=== PATIENT | female | born 1985 | race Caucasian/White ===

== ENCOUNTER → 2018-05-06 16:54 | Outpatient (CLI) | payer OTHER, SELFPAY ==
[2018-05-06 15:54] VITALS: BMI 28.3
[2018-05-06 17:34] LABS: Absolute Lymphocyte Count 2.91 X10^3/ul (0.83-4.51); Absolute Neutrophil Count 7.4 X10^3/uL (2.0-7.7); Basophil# 0.04 X10^3/uL; Basophil% 0.4 % (0-1); Eosinophil# 0.06 X10^3/uL; Eosinophils% 0.5 % (0-5); Hematocrit 37.7 % (37-47); Hemoglobin 13.1 g/dl (12.0-15.0); Lymphocyte # 2.91 X10^3/ul (4.0); Lymphocyte % 25.8 % (19-41); Mean Corp Hgb Conc 34.7 g/gl (32-36); Mean Corpuscular Hgb 29.7 pg (27.0-32.0); Mean Corpuscular Volume 85.5 fL (81-99); Mean Platelet Vol. 11.2 fl (6.2-12.0); Monocyte# 0.82 X10^3/uL; Monocyte% 7.3 % (0-10); Neutrophil # 7.44 X10^3/uL (2.7-7.7); Neutrophil % 65.7 % (47-70); Platelet Count 222 K/mm3 (150-450); RBC Distribution Width CV 12.3 % (11.6-14.6); RBC Distribution Width SD 38.3 fl (35.1-43.9); Red Blood Count 4.41 M/mm3 (4.2-5.4); White Blood Count 11.3 K/mm3 (4.4-11.0)
[2018-05-06 17:40] LABS: POSITIVE COUNT NO; POSITIVE DIFFERENTIAL NO; POSITIVE MORPHOLOGY NO
[2018-05-06 18:25] LABS: Glucose 80 mg/dL (74-106)
[2018-05-06 19:17] LABS: HIV - WCH Non-Reactive (Nonreactive); Rubella IgG 93.5 IU/mL
[2018-05-06 23:17] LABS: Chlamydia Trachomatis by PCR Negative (Negative); Neisserai gonorrhoeae by PCR Negative (Negative); Probe Check PASS; Sample Adequacy Control PASS; Specimen Processing Control PASS
[2018-05-08 15:17] LABS: CMV Antibody IgG < 0.60 U/mL (0.00-0.59); HEPATITIS B SURFACE AG Negative (Negative)
[2018-05-08 23:53] LABS: Rapid Plasmin Reagin (RPR) NONREACTIVE (NONREACTIVE)
[2018-05-12 12:35] LABS: HPV APTIMA, High Risk Positive (Negative)
--- OUTSIDE RECORDS SUMMARY | 2018-08-08 05:32 | XMS RPT_ITS ---
:1985 Author Organization OHIP Care Team Providers Name Role Phone Vaishali March Attending Unavailable Vaishali March Attending Unavailable Vaishali March Referring Unavailable Kemal Jeter Primary [facility] Unavailable Vaishali March Attending Unavailable Vaishali March Attending Unavailable PROBLEMS PROBLEMS DATE TYPE CONDITION / CODE ATTENDING STATUS SOURCE 05/16/2018 Unknown N91.2 - Anca, Active Sajan Amenorrhea, Vaishali [facility] unspecified / Hospital N91.2(ICD-10) Repository 05/06/2018 Unknown Z34.90 - Anca, Active Sajan Encounter for [facility] normal , Repository unspecified, unspecified trimester / Z34.90(ICD-10) 05/06/2018 Unknown Z3A.08 - 8 weeks Anca, Active Sajan gestation of [facility] / Hospital Z3A.08(ICD-10) Repository 07/08/2017 Unknown N92.6 - Irregular Anca, Active Sajan menstruation, [facility] unspecified / Hospital N92.6(ICD-10) Repository PROCEDURES PROCEDURES No Procedure Records FoundRESULTS RESULTS CHILD PSYCHOMETRIST OFFICE VISIT Observed: 05/10/2018 Status: F Source: [place] REPORT 3:29 AM [facility] REPOSITORY [facility] Emergency Department [address] [place] [address]. [address] [place] [address] OFFICE VISIT Date of Service: 05/06/18 MR#: [id number] Acct: [id number] Name: PIEDAD TURNER Rep #: [id number] : 1985 Provider: Vaishali March MD Age/Sex: 32/F [place] [facility] [place] Status: Signed Intake Vital Signs05/06/18 Height 5 ft 4 in 05/06/18 Weight: 165 lb 2 oz 05/06/18 Body Mass Index (BMI) 28.3 05/06/18 Blood Pressure 110/82 H Intake Visit Reasons: NOB: LMP 03/06/18 Chief Complaint: NEW OB Intelligence Operations Required: No Is patient in pain?: No Allergies No Known Allergies Allergy (Verified 05/06/18 15:55) Medications vitamin#30 30 mg iron-10 mg iron-folic acid 1 mg- omg3 capsule cap PO cap 05/06/18 [History Confirmed 05/06/18] Last Menstral Period: 06/05/17 Zika: Zika virus screening: Negative : No PFSH PFSH Medical History Abnormal Pap smear of cervix (Acute) Surgical History H/O hand surgery (Acute) History of colposcopy (Acute) Hx of cholecystectomy (Acute) Family History Grandmother Heart disease Cancer pancreatic cancer Social History Smoking Status: Never smoker alcohol intake: never substance use type: does not use caffeine: Yes frequency: 3-4 times per week seatbelt use: always do you feel safe at home: Yes additional social history: Wally Fairchild works at 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 OB Visit Comments: crl consistent with cam 12/05/18 fht present and reassuring Menstrual History Last Menstral Period: 06/05/17 Reported LMP: definite Normal amount/duration: Yes On hormonal BC at conception: No Antepartum Record Genetic Screening: Congenital Heart Defect: Other, Neural Tube Defect: Other, Hemoglobinopathy Or Carrier: Other, Cystic Fibrosis: Other, Chromosome Abnormality: Other, Giles-Sachs: Other, Hemophilia: Other, Intellectual Disability/Autism: Other, Recurrent Loss/Stillbirth: Other, Other Structural Defect: Other, Other Genetic Disease: Other, Maternal Metabolic Disorder: Other Infection History: Live with someone with TB or Exposed to TB: No, Patient or Partner has history of Genital Herpes: No, Rash or Viral illness since last mentrual period: No, Prior GBS-Infected child: No, History of STD: No, HIV Infection: No, History of Hepatitis: No, Recent travel outside of [place]: No, Concern for Hep exposure: No, Varicella immune: Yes Medical History Medical History: Positive: Operations/hospitalizations, History of abnormal pap, Negative: Diabetes, Hypertension, Heart disease, Auto-immune disorder, Kidney disease/UTI, Neurologic/epilepsy, Psychiatric, Depression/ depression, Hepatitis/liver disease, Varicosities/phlebitis, Thyroid dysfunction, Trauma/domestic violence, History of blood transfusions, D (Rh) Sensitized, Pulmonary (e.g.,TB,Asthma), Seasonal allergies, Drug/latex allergies/reactions, Breast, Engine Service Repairer surgery, Anesthetic complications, Uterine anomaly/ganesh, Infertility, Anti-retroviral treatment, Relevant family history, Other ACOG First Trimester First Trimester: , Desire for , Alcohol, Tobacco Cessation, Illicit/Recreational Drug/Substance Use, Intimate Partner Violence, Barriers to care, Unstable Housing, Communication Barriers, Environmental/Work Hazards, Anticipated Course of Care, Nurtrition and weight gain, Toxoplasmosis Precations, Use of Any medications, Sexual activity, Exercise, Dental Care, Sauna/Hot tub use, Seat Belt use, Childbirth classes/Hospital facilities, Travel, Indications for US and Screening for Aneuploidy ROS Const Denies fever(s), Reports system reviewed and no additional complaints, except as docu, Reports fatigue Eyes Reports system reviewed and no additional complaints, except as docu ENT Reports system reviewed and no additional complaints, except as docu Card Denies chest pain, Denies shortness of breath Resp Reports system reviewed and no additional complaints, except as docu, Denies shortness of breath, Denies cough GI Reports nausea, Denies abdominal pain Reports system reviewed and no additional complaints, except as docu Musc Reports system reviewed and no additional complaints, except as docu Skin/Breast Reports system reviewed and no additional complaints, except as docu Neuro Yes system reviewed and no additional complaints, except as docu Psych Reports system reviewed and no additional complaints, except as docu Endo Reports fatigue, Reports system reviewed and no additional complaints, except as docu Exam Const General: healthy appearing, comfortable, no acute distress Orientation: alert HENVT Head: normal to inspection, atraumatic, normocephalic Ears: external ears normal, hearing grossly normal bilaterally Nose: nares normal, external nose normal Mouth: oral mucosae normal Teeth and gingiva: dentition normal Eyes General: appearance normal, both eyes and all related structures Neck Neck: no lymphadenopathy, supple, normal visual inspection Thyroid: thyroid normal Resp Effort AND Inspection: normal respiratory effort GI Inspection: normal to inspection Palpation: soft, no hepatosplenomegaly General: bladder normal to palpation External Female Exam: normal external appearance, normal appearance of the urethra Urethra: normal appearance of the urethra Speculum Exam - Vagina: normal appearance of the vagina, normal vaginal discharge Speculum Exam - Cervix: normal appearance of the cervix Bimanual Exam- Vagina AND Uterus: bladder normal to palpation, normal bimanual exam, uterus non-tender, other Bimanual Exam- Adnexa, other: adnexae non-tender Skin General: no rashes or lesions noted Neuro Motor: muscle tone normal throughout, no movement abnormalities noted Extrem General: normal to inspection, full ROM Assessment AND Plan Problems 1. 8 weeks gestation of Z3A.08 genetic carrier and ntd screening discussed. 2. Encounter for supervision of normal first in first trimester Z34.01 CAM Gurinder Plan Patient oriented to practice and discussed care expectations and screenings. ACOG book offered to patient. Discussed routine and specially indicated labs if needed- patient consents to testing. see problem list details for plan information. Optional screening including carrier screenings, neural tube defect screening, sequential screening, and NIPT screening offered to patient and patient chose: discussed Orders Orders: Supplemental Info ACOG book given and patient encouraged to read about nutrition, exercise, weight gain, and food avoidance in . Coding Level of Care Code OB Routine Diagnoses 8 weeks gestation of Z3A.08 Weeks of gestation: 8 weeks Encounter for supervision of normal first in first trimester Z34.01 Normal : normal first Trimester: first trimester 05/10/18 0329 <Electronically signed by Vaishali March MD> Date Vaishali March MD Cosign Signature: Date (if applicable) CC: CBC W/DIFF, AUTOMATED Collected: 05/06/2018 Status: F Source: [place] 5:09 PM [facility] REPOSITORY TYPE CODE TESTS RESULT OUT OF RANGE REFERENCE UNITS LAB L100.1000 4.4-11.0 K/mm3 High WBC 11.3 LAB L100.1200 4.2-5.4 M/mm3 Normal RBC 4.41 LAB L100.1300 12.0-15.0 g/dl Normal HGB 13.1 LAB L100.1400 37-47 % Normal HCT 37.7 LAB L100.1500 81-99 fL Normal MCV 85.5 LAB L100.1600 27.0-32.0 pg Normal MCH 29.7 LAB L100.1700 32-36 g/gl Normal MCHC 34.7 LAB L100.1810 11.6-14.6 % Normal RDW CV 12.3 LAB L100.1820 35.1-43.9 fl Normal RDW SD 38.3 LAB L100.1900 150-450 K/mm3 Normal PLT 222 LAB L100.2000 6.2-12.0 fl Normal MPV 11.2 LAB L100.2100 47-70 % Normal NEUT% 65.7 LAB L100.2200 19-41 % Normal LY% 25.8 LAB L100.2300 0-10 % Normal MONO% 7.3 LAB L100.2400 0-5 % Normal EO% 0.5 LAB L100.2500 0-1 % Normal BASO% 0.4 LAB L100.2550 0.0-0.9 % Normal IM GRAN % 0.300 Result Comment: IG% - Immature Granulocytes (promyelocytes, myelocytes and metamyelocytes) > 1% indicates that a LEFT SHIFT is Present. LAB L100.2620 2.0-7.7 X10 3/uL Normal Absolute Neut 7.4 LAB L100.2720 0.83-4.51 X10 3/ul Normal Absolute Lymph 2.91 Performed By: #### L100.0100 #### [facility] [address] [place], [address] GLUCOSE Collected: 05/06/2018 Status: F Source: [place] 5:09 PM [facility] REPOSITORY TYPE CODE TESTS RESULT OUT OF RANGE REFERENCE UNITS LAB L501.0100 74-106 mg/dL Normal GLU 80 Result Comment: Please note revised GLUCOSE reference range effective 2017. Performed By: #### L501.0100 #### [facility] [address] [place], [address] HCG TITER QUANT., Collected: 05/06/2018 Status: F Source: [place] SERUM 5:09 PM [facility] REPOSITORY Order Comment: Comments: ONLY WANTED GLU TYPE CODE TESTS RESULT OUT OF RANGE REFERENCE UNITS LAB L700.8000 <9 non-preg mIU/mL High HCG [id number] QUANT. Performed By: #### L700.8000, L700.5000 #### [facility] [address] [place], [address] RAPID PLASMIN REAGIN Collected: 05/06/2018 Status: F Source: [place] (RPR) 5:09 PM [facility] REPOSITORY Order Comment: Comments: ONLY WANTED GLU TYPE CODE TESTS RESULT OUT OF REFERENCE UNITS RANGE LAB L700.5000 NONREACTIVE NONREACTIVE Normal RPR Performed By: #### L700.8000, L700.5000 #### [facility] [address] [place], [address] TYPE AND SCREEN Collected: 05/06/2018 Status: F Source: [place] 5:09 PM [facility] REPOSITORY Order Comment: Reason for Type AND Screen/Red Cells: TYPE CODE TESTS RESULT OUT OF RANGE REFERENCE UNITS LAB B10.0800 A Normal BLOOD TYPE GEL POSITIVE LAB B100.4000 Normal Antibody NEGATIVE Screen Performed By: #### B101.7450 #### [facility] [address] [place], [place], [id number] RUBELLA IGG Collected: 05/06/2018 Status: F Source: [place] 5:09 PM [facility] REPOSITORY Order Comment: Comments: ONLY WANTED GLU TYPE CODE TESTS RESULT OUT OF RANGE REFERENCE UNITS LAB L509.4000 IU/mL Normal Rubella IgG 93.5 Result Comment: Antibody results Interpretation of Immune Status < 5 IU/ml Presumed Non-immune 5 - < 10 IU/ml Equivocal > or = 10 IU/ml Presumed Immune Performed By: #### L509.4000, L3890.6005 #### [facility] [address] [place], [address] HIV - [facility] Collected: 05/06/2018 Status: F Source: [place] 5:09 PM [facility] REPOSITORY Order Comment: Comments: ONLY WANTED GLU TYPE CODE TESTS RESULT OUT OF RANGE REFERENCE UNITS LAB L3890.6005 Nonreactive Normal HIV - [facility] Non-Reactive Performed By: #### L509.4000, L3890.6005 #### [facility] [address] [place], [address] HEPATITIS B SURFACE Collected: 05/06/2018 Status: F Source: [place] AG 5:09 PM [facility] REPOSITORY TYPE CODE TESTS RESULT OUT OF RANGE REFERENCE UNITS LAB L3100.0400 Negative Normal HB Negative SURF AG Result Comment: Performed at: [address] [id number] Beef Boner: Papi Hemphill PhD, Phone: [phone] Performed By: #### L3100.0390, L3400.1490 #### [facility] (refer to report for specific site) refer to report for address and phone number CMV ANTIBODY IGG Collected: 05/06/2018 Status: F Source: [place] 5:09 PM [facility] REPOSITORY TYPE CODE TESTS RESULT OUT OF RANGE REFERENCE UNITS LAB L3400.1490 0.00-0.59 U/mL Normal CMV AB < 0.60 IgG Result Comment: Negative <0.60 Equivocal 0.60 - 0.69 Positive >0.69 Performed By: #### L3100.0390, L3400.1490 #### [facility] (refer to report for specific site) refer to report for address and phone number CT/NG WCH BY PCR Collected: 05/06/2018 Status: F Source: [place] 4:10 PM [facility] REPOSITORY TYPE CODE TESTS RESULT OUT OF RANGE REFERENCE UNITS LAB L8200.2100 Negative Normal Chlam Negative Trac PCR LAB L8200.2200 Negative Normal NG by Negative PCR Performed By: #### L8200.2000 #### [facility] [address] [place], [place], [address] Observed: 05/06/2018 Status: F Source: [place] CULTURE, URINE 4:10 PM [facility] REPOSITORY Urine Culture ORGANISM 1: Mixed Gram Positive Organisms [place] Count 25,000-50,000 MIX CULTURE Mixed contaminants. Submit a new specimen if indicated. Performed By: #### M100.0650 #### [facility] [address] [place], [address] PAP IG HPV APTIMA Collected: 05/06/2018 Status: F Source: [place] 16/18,45 4:10 PM [facility] REPOSITORY Order Comment: CYTOLOGY INFORMATION: - CLINICAL INFORMATION: - DATE LMP/MENOPAUSE: 03/06/18 LMP - COLLECTION VIAL: Thin Prep Vial - RECOVERY ROOM RN SOURCE: CERVICAL - COLLECTION TECHNIQUE: CX BROOM ONLY Specimen Comment: [id number] Specimen Comment: Source.............Cervix Specimen Comment: LMP / Prev Treat...[id number] Specimen Comment: Other.............. Specimen Comment: No. of containers..01 ThinPrep Vial TYPE CODE TESTS RESULT OUT OF REFERENCE UNITS RANGE LAB L7400.0800 . High DIAGN Comment Result Comment: EPITHELIAL CELL ABNORMALITY. HIGH-GRADE SQUAMOUS INTRAEPITHELIAL LESION (HGSIL); MODERATE DYSPLASIA IS PRESENT. LAB L7400.0900 . Normal ADEQ Comment Result Comment: Satisfactory for evaluation. Endocervical and/or squamous metaplastic cells (endocervical component) are present. LAB L7400.1300 . High RECOMM Comment Result Comment: Suggest colposcopy and biopsy if indicated. LAB L7400.1400 . Normal PERFORM Comment Result Comment: Radha Doss, Containers Sales Representative (ASCP) LAB L7400.1700 . Normal SIGN Comment Result Comment: Arleth Love MD, Pathologist LAB L7400.1720 . Normal Path prov. Comment ICD9 Result Comment: R87.613 LAB L7400.2575 . Normal TEST METHOD Comment Result Comment: This liquid based ThinPrep(R) pap test was screened with the use of an image guided system. LAB L7400.2600 . Normal . COMM LAB L7400.2700 . Normal PAPSMR Comment Result Comment: The Pap smear is a screening test designed to aid in the detection of premalignant and malignant conditions of the uterine cervix. It is not a diagnostic procedure and should not be used as the sole means of detecting cervical cancer. Both false-positive and false-negative reports do occur. LAB L7400.2760 Negative High HPV APTIMA, HR Positive Result Comment: This test detects fourteen high-risk HPV types (16/18/31/33/35/39/45/ 51/52/56/58/59/66/68) without differentiation. Performed at: [facility] [id number] Beef Boner: Rachna Barton MD, Phone: [phone] Performed at: =[facility] [id number] Beef Boner: Rachna Barton MD, Phone: [phone] Performed By: #### L7400.0280 #### [facility] (refer to report for specific site) refer to report for address and phone number CHILD PSYCHOMETRIST OFFICE VISIT Observed: 07/11/2017 Status: F Source: [place] REPORT 6:[address] [facility] Emergency Department [address] [place] [address] OFFICE VISIT Date of Service: 07/08/17 MR#: [id number] Acct: [id number] Name: PIEDAD PARRISH Rep #: [id number] : 1985 Provider: Vaishali March MD Age/Sex: 32/F Location[place] [facility] [place] Status: Signed Intake Vital Signs07/08/17 Height 5 ft 4 in 07/08/17 Weight: 158 lb 2 oz 07/08/17 Body Mass Index (BMI) 27.1 07/08/17 Blood Pressure 125/81 Intake Visit Reasons: [place] Chief Complaint: [place] Intelligence Operations Required: No Is patient in pain?: No Allergies No Known Allergies Allergy (Verified 07/08/17 09:42) Medications norgestimate 0.25 mg-ethinyl estradiol 35 mcg tablet 1 tab PO QDAY #28 tab 05/17/17 [Rx Confirmed 07/08/17] loratadine 5 mg-pseudoephedrine ER 120 mg tablet,extended release,12hr 1 tab PO Q12H 06/03/17 [History Confirmed 07/08/17] Is last menstrual period known: Yes Last Menstral Period: 06/05/17 Post menopausal: No Patient : No : No PFSH PFSH Medical History Abnormal Pap smear of cervix (Acute) Surgical History H/O hand surgery (Acute) History of colposcopy (Acute) gallbladder surgery (Acute) Family History Grandmother Heart disease Cancer pancreatic cancer Social History Smoking Status: Never smoker alcohol intake: never substance use type: does not use caffeine: Yes frequency: 3-4 times per week seatbelt use: always do you feel safe at home: Yes additional social history: Wally Fairchild works at 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 History 0 Elective abortions Hx Para Spontaneous abortions HPI [place]: Details: PIEDAD PARRISH is a 32 year old who presents for colposcopy Female Reproductive History Last Menstral Period: 06/05/17 Office Procedures Colposcopy Colposcopy Reason for colposcopy: LSIL Pap/DESMOND history: previous LSIL Consent Signed: Yes Time out performed: Yes Time: 10:19 Acetowhite epithelium (cervix): 6 o'clock Punctation (cervix): none Mosaicism (cervix): none Abnormal vessels (cervix): none Biopsies (cervix): none Punctation (vagina): none Mosaicism (vagina): none Biopsies (vagina): none Cervix+upper/adj vagina: Yes biopsy Details: adequate and satisfactory colposcopy Results [facility] Office , Urine Negative Last Edit by Anayeli العلي on 07/08/17 09:53 Assessment AND Plan Problems 1. Low grade squamous intraepithelial lesion on cytologic smear of cervix (LGSIL) R87.612 LGSIL 2017 repeat pap hpv 07/08 Plan consistent with DESMOND 1 recommend repeat pap and hpv in 1 year Orders Orders: Coding Level of Care Code No Charge Diagnoses Low grade squamous intraepithelial lesion on cytologic smear of cervix (LGSIL) R87.612 Abnormal Pap type: low grade squamous intraepithelial lesion (LGSIL) Additional Codes Colposcopy - Cervix+upper/adj vagina: Yes (60215) 07/11/17 0621 <Electronically signed by Vaishali March MD> Date Vaishali March MD Cosigner Signature: Date (if applicable) CC: ALLERGIES ALLERGIES DATE TYPE / CODE NAME / CODE REACTION SEVERITY SOURCE 05/06/2018 [facility] [address]85(SNOMED 0257514(RXNOR Repository CT) M) ENCOUNTERS ENCOUNTERS ADMIT/DISCHARGE ACCOUNT ADMITTING ENCOUNTER LOCATION SOURCE NUMBER CLASS 06/09/2018 [id number] Ambulatory BMSBuilding:B [place] [facility] Repository 05/06/2018 [id number] Ambulatory Sajan Sajan 8 [facility] ing:LAB Repository 05/06/2018/ [id number] Ambulatory BMSBuilding:B [place] [address] 5 [facility] Repository 07/08/2017/ [id number] Ambulatory BMSBuilding:B [place] [address] 9 [facility] Repository PAYERS PAYERS ENCOUNTER GUARANTOR PAYER SUBSCRIBER SOURCE 06/09/2018 PIEDAD R Primary PIEDAD [id number] Insurance:MEDICAL BENEDETTIDOB: [facility] [id number] Number: Repository [id number]: [phone] [id number] [phone] () Date:[id number] [address]KV: 06/09/2018 Secondary NOT GIVENUNK Sajan Insurance:SELF PAY [facility] Number: Effective Repository Date:2018-05-06 05/06/2018 PIEDAD R Primary PIEDAD [place] [id number] Insurance:MEDICAL BENEDETTIDOB: [facility] [id number] Number: Repository [id number]: [phone] [id number] [phone] () Date:[id number] [address]QG: 05/06/2018 Secondary NOT GIVENUNK [place] Insurance:SELF PAY [facility] Number: Effective Repository Date:2018-05-06 05/06/2018 PIEDAD Primary PIEDAD [place] [id number] Insurance:MEDICAL BENEDETTIDOB: [facility] [id number] Number: Repository [id number]: [phone] [id number] [phone] () Date:6510-47-64AD [address] [address]RO: 05/06/2018 Secondary NOT GIVENUNK Sajan Insurance:SELF PAY [facility] Number: Effective Repository Date:2018-05-06 07/08/2017 PIEDAD PARRISH66B Primary PIEDAD ENAMORADOOB: [place] [address], Insurance:MEDICAL [id number] [address]Run: [facility] Number: Repository () [id number] Date:8594-75-77[address] [address]UH: 07/08/2017 Secondary NOT GIVENUNK Sajan Insurance:SELF PAY [facility] Number: Effective Repository Date:2017-06-11
== END ==
PROVIDERS: Family Provider Family Medicine; PCP Family Medicine; Referring Provider Obstetrics & Gynecology; Visit Provider Obstetrics & Gynecology
DX: O26.899 Other specified pregnancy related conditions, unspecified trimester (principal); N91.2 Amenorrhea, unspecified; Z3A.00 Weeks of gestation of pregnancy not specified
CPT/HCPCS: 82947; 84702; 85025; 86592; 86644; 86703; 86762; 86850; 86900; 87086; 87088; 87340; 87491; 87591; 87624; 88175; G0145

== ENCOUNTER → 2018-06-13 15:10 | Outpatient (CLI) | payer OTHER, SELFPAY ==
[2018-06-13 14:53] VITALS: BMI 28.3
[2018-06-17 16:01] LABS: PARVOVIRUS B19 IGG 4.7 index (0.0-0.8); PARVOVIRUS B19 IGM 0.3 index (0.0-0.8)
== END ==
PROVIDERS: Family Provider Family Medicine; PCP Family Medicine; Referring Provider Obstetrics & Gynecology; Visit Provider Obstetrics & Gynecology
DX: Z20.828 Contact with and (suspected) exposure to other viral communicable diseases (principal)
CPT/HCPCS: 36415; 86747

== ENCOUNTER → 2018-06-24 09:45 | Outpatient (CLI) | payer OTHER, SELFPAY ==
[2018-06-24 09:28] VITALS: BMI 28.3
[2018-06-24 10:13] LABS: ROM Internal Control Test YES-OK TO RESULT pt. (Internal QC)
[2018-06-24 10:14] LABS: ROM Patient Test Negative (Negative); Record Kit Lot#, ROM+ J7836
== END ==
PROVIDERS: Family Provider Family Medicine; PCP Family Medicine; Referring Provider Obstetrics & Gynecology; Visit Provider Obstetrics & Gynecology
DX: O26.899 Other specified pregnancy related conditions, unspecified trimester (principal); N89.8 Other specified noninflammatory disorders of vagina; Z3A.00 Weeks of gestation of pregnancy not specified
CPT/HCPCS: 84112

== ENCOUNTER → 2018-09-04 16:03 | Outpatient (CLI) | payer OTHER, SELFPAY ==
[2018-09-01 15:36] VITALS: BMI 30.4
[2018-09-04 17:21] LABS: Absolute Lymphocyte Count 1.96 X10^3/ul (0.83-4.51); Absolute Neutrophil Count 9.3 X10^3/uL (2.0-7.7); Basophil# 0.02 X10^3/uL; Basophil% 0.2 % (0-1); Eosinophils% 0.8 % (0-5); Hematocrit 33.2 % (37-47); Hemoglobin 11.4 g/dl (12.0-15.0); Lymphocyte # 1.96 X10^3/ul (4.0); Lymphocyte % 16.2 % (19-41); Mean Corp Hgb Conc 34.3 g/gl (32-36); Mean Corpuscular Hgb 29.8 pg (27.0-32.0); Mean Corpuscular Volume 86.7 fL (81-99); Mean Platelet Vol. 12.1 fl (6.2-12.0); Monocyte# 0.69 X10^3/uL; Monocyte% 5.7 % (0-10); Neutrophil # 9.28 X10^3/uL (2.7-7.7); Neutrophil % 76.5 % (47-70); Platelet Count 182 K/mm3 (150-450); RBC Distribution Width CV 12.4 % (11.6-14.6); Red Blood Count 3.83 M/mm3 (4.2-5.4); White Blood Count 12.1 K/mm3 (4.4-11.0)
[2018-09-04 17:24] LABS: POSITIVE COUNT NO; POSITIVE DIFFERENTIAL NO; POSITIVE MORPHOLOGY NO
[2018-09-04 17:38] LABS: Glucose Challenge Gest 1H 50g 117 mg/dL (70-140)
== END ==
PROVIDERS: Family Provider Family Medicine; PCP Family Medicine; Referring Provider Obstetrics & Gynecology; Visit Provider Obstetrics & Gynecology
DX: Z34.90 Encounter for supervision of normal pregnancy, unspecified, unspecified trimester (principal)
CPT/HCPCS: 36415; 82950; 85025

== ENCOUNTER 2018-10-31 08:55 | Outpatient (CLI) | payer OTHER, SELFPAY ==
[2018-10-31 08:28] VITALS: BMI 30.4
[2018-10-31 09:09] VITALS: BMI 33.0
[2018-10-31 09:52] LABS: Hematocrit 33.9 % (37-47); Hemoglobin 11.5 g/dl (12.0-15.0); Mean Corp Hgb Conc 33.9 g/gl (32-36); Mean Corpuscular Volume 85.4 fL (81-99); Mean Platelet Vol. 12.2 fl (6.2-12.0); Platelet Count 172 K/mm3 (150-450); RBC Distribution Width CV 12.7 % (11.6-14.6); RBC Distribution Width SD 39.2 fl (35.1-43.9); Red Blood Count 3.97 M/mm3 (4.2-5.4); White Blood Count 9.6 K/mm3 (4.4-11.0)
[2018-10-31 09:53] LABS: Scan Indicated on CBC? Y/N NO
[2018-10-31 10:00] LABS: Prothrombin Time (Protime)PT. 12.7 SECONDS (11.7-14.9)
[2018-10-31 10:03] LABS: AST(SGOT) 16 U/L (15-37); Alanine Aminotransfer ALT/SGPT 11 U/L (13-56); EST Glomerular Filtration Rate 154 mL/min (>60); Est Glom Filt Rate - Afr Amer 186 mL/min (>60); Estimated Creatinine Clearance 140.78 ml/min; Uric Acid 3.8 mg/dL (2.6-6.0)
[2018-10-31 10:06] LABS: Protein, Urine (Random) < 6.0 mg/dL (<11.9)
--- NOTE | 2018-11-02 04:39 | OB.TRI.PN ---
Progress Notes Date of Service: 10/31/18 Progress Note: Patient was seen in the office today for routine antepartum visit was noted to have borderline elevated blood pressures. Upon extended monitoring in labor and delivery blood pressures were all within normal limits, preeclampsia labs were sent and are within normal limits heart tone: 130 moderate variability reactive no decelerations category 1 tracing [place]: Irregular contractions Assessment and plan: Elevated blood pressure in now resolved and negative precludes a work-up reviewed preeclampsia precautions and follow-up as outpatient Laboratory Studies: Laboratory Tests 10/31/18 10/31/18 10/31/18 Range/Units 09:35 09:35 09:35 WBC (4.4-11.0) K/mm3 RBC (4.2-5.4) M/mm3 Hgb (12.0-15.0) g/dl Hct (37-47) % MCV (81-99) fL MCH (27.0-32.0) pg MCHC (32-36) g/gl RDW (11.6-14.6) % RDW Differential (35.1-43.9) fl Plt Count (150-450) K/mm3 MPV (6.2-12.0) fl PT 12.7 (11.7-14.9) SECONDS INR 1.0 APTT 25.0 (24.1-36.2) Seconds Creatinine 0.50 L (0.55-1.02) mg/dL Estim Creat Clear Calc 140.78 ml/min Est GFR (MDRD) Af Amer 186 (>60) mL/min Est GFR (MDRD) Non-Af 154 (>60) mL/min Uric Acid 3.8 (2.6-6.0) mg/dL AST 16 (15-37) U/L ALT 11 L (13-56) U/L U Random Total Protein < 6.0 (<11.9) mg/dL Urine Creatinine 43.90 (NO RANGE EST.) mg/dL Protein/Creatinin Ratio TNP 10/31/18 Range/Units 09:35 WBC 9.6 (4.4-11.0) K/mm3 RBC 3.97 L (4.2-5.4) M/mm3 Hgb 11.5 L (12.0-15.0) g/dl Hct 33.9 L (37-47) % MCV 85.4 (81-99) fL MCH 29.0 (27.0-32.0) pg MCHC 33.9 (32-36) g/gl RDW 12.7 (11.6-14.6) % RDW Differential 39.2 (35.1-43.9) fl Plt Count 172 (150-450) K/mm3 MPV 12.2 H (6.2-12.0) fl PT (11.7-14.9) SECONDS INR APTT (24.1-36.2) Seconds Creatinine (0.55-1.02) mg/dL Estim Creat Clear Calc ml/min Est GFR (MDRD) Af Amer (>60) mL/min Est GFR (MDRD) Non-Af (>60) mL/min Uric Acid (2.6-6.0) mg/dL AST (15-37) U/L ALT (13-56) U/L U Random Total Protein (<11.9) mg/dL Urine Creatinine (NO RANGE EST.) mg/dL Protein/Creatinin Ratio
== END 2018-10-31 10:25 | disposition home or self-care (01) ==
LOC: WPOUT 08:59 → LAB 09:02 → WPOUT 09:02 → WP 09:03
PROVIDERS: Family Provider Family Medicine; PCP Family Medicine; Referring Provider Obstetrics & Gynecology; Visit Provider Obstetrics & Gynecology
DX: O26.899 Other specified pregnancy related conditions, unspecified trimester (principal); R03.0 Elevated blood-pressure reading, without diagnosis of hypertension; Z3A.00 Weeks of gestation of pregnancy not specified
CPT/HCPCS: 36415; 59025; 59050; 82565; 82570; 84156; 84450; 84460; 84550; 85027; 85610; 85730; 99218; G0378

== ENCOUNTER 2018-11-03 12:15 | Outpatient (CLI) | payer OTHER, SELFPAY ==
[2018-11-03 11:38] VITALS: BMI 33.3
[2018-11-03 12:23] VITALS: BMI 33.2
[2018-11-03 12:59] LABS: Hematocrit 33.6 % (37-47); Hemoglobin 11.4 g/dl (12.0-15.0); Mean Corp Hgb Conc 33.9 g/gl (32-36); Mean Corpuscular Hgb 28.8 pg (27.0-32.0); Mean Corpuscular Volume 84.8 fL (81-99); Mean Platelet Vol. 12.2 fl (6.2-12.0); Platelet Count 170 K/mm3 (150-450); RBC Distribution Width CV 12.5 % (11.6-14.6); RBC Distribution Width SD 37.7 fl (35.1-43.9); Red Blood Count 3.96 M/mm3 (4.2-5.4); Scan Indicated on CBC? Y/N NO; White Blood Count 9.4 K/mm3 (4.4-11.0)
[2018-11-03 13:07] LABS: International Normalized Ratio 0.9; Prothrombin Time (Protime)PT. 12.1 SECONDS (11.7-14.9)
[2018-11-03 13:08] LABS: Partial Thromboplast Time 24.7 Seconds (24.1-36.2)
[2018-11-03 13:15] LABS: AST(SGOT) 16 U/L (15-37); Alanine Aminotransfer ALT/SGPT 10 U/L (13-56); Creatinine, Serum 0.49 mg/dL (0.55-1.02); EST Glomerular Filtration Rate 155 mL/min (>60); Est Glom Filt Rate - Afr Amer 187 mL/min (>60); Estimated Creatinine Clearance 143.65 ml/min; Uric Acid 3.8 mg/dL (2.6-6.0)
[2018-11-03 13:37] LABS: Protein, Urine (Random) < 6.0 mg/dL (<11.9)
[2018-11-03] MEDS: Acetaminophen 500 MG Tablet 1000 MG PO (13:42)
--- NOTE | 2018-11-04 01:34 | OB.TRI.PN_ITS ---
Progress Notes Date of Service: 11/03/18 Progress Note: Patient presented due to headache and initial blood pressure in the office was elevated upon evaluation on labor and delivery all blood pressures are within normal limits and headache is resolving. Negative clonus. Normal preeclampsia work-up with negative protein in the urine. heart tone: 130 moderate variability reactive no decelerations category 1 tracing [place]: No regular contractions Assessment and plan headache and : Negative for eclampsia work-up and headache improving, all provided in the office for blood pressure check and reviewed pre-eclampsia precautions with the patient Laboratory Studies: Laboratory Tests 11/03/18 11/03/18 11/03/18 Range/Units 12:45 12:45 12:45 WBC 9.4 (4.4-11.0) K/mm3 RBC 3.96 L (4.2-5.4) M/mm3 Hgb 11.4 L (12.0-15.0) g/dl Hct 33.6 L (37-47) % MCV 84.8 (81-99) fL MCH 28.8 (27.0-32.0) pg MCHC 33.9 (32-36) g/gl RDW 12.5 (11.6-14.6) % RDW Differential 37.7 (35.1-43.9) fl Plt Count 170 (150-450) K/mm3 MPV 12.2 H (6.2-12.0) fl PT 12.1 (11.7-14.9) SECONDS INR 0.9 APTT 24.7 (24.1-36.2) Seconds Creatinine 0.49 L (0.55-1.02) mg/dL Estim Creat Clear Calc 143.65 ml/min Est GFR (MDRD) Af Amer 187 (>60) mL/min Est GFR (MDRD) Non-Af 155 (>60) mL/min Uric Acid 3.8 (2.6-6.0) mg/dL AST 16 (15-37) U/L ALT 10 L (13-56) U/L U Random Total Protein (<11.9) mg/dL Urine Creatinine (NO RANGE EST.) mg/dL Protein/Creatinin Ratio 11/03/18 Range/Units 12:30 WBC (4.4-11.0) K/mm3 RBC (4.2-5.4) M/mm3 Hgb (12.0-15.0) g/dl Hct (37-47) % MCV (81-99) fL MCH (27.0-32.0) pg MCHC (32-36) g/gl RDW (11.6-14.6) % RDW Differential (35.1-43.9) fl Plt Count (150-450) K/mm3 MPV (6.2-12.0) fl PT (11.7-14.9) SECONDS INR APTT (24.1-36.2) Seconds Creatinine (0.55-1.02) mg/dL Estim Creat Clear Calc ml/min Est GFR (MDRD) Af Amer (>60) mL/min Est GFR (MDRD) Non-Af (>60) mL/min Uric Acid (2.6-6.0) mg/dL AST (15-37) U/L ALT (13-56) U/L U Random Total Protein < 6.0 (<11.9) mg/dL Urine Creatinine 24.10 (NO RANGE EST.) mg/dL Protein/Creatinin Ratio TNP
== END 2018-11-03 13:55 | disposition home or self-care (01) ==
LOC: WPOUT 12:21 → WP 12:22
PROVIDERS: Family Provider Family Medicine; PCP Family Medicine; Referring Provider Obstetrics & Gynecology; Visit Provider Obstetrics & Gynecology
DX: O26.899 Other specified pregnancy related conditions, unspecified trimester (principal); R51 Headache; Z3A.00 Weeks of gestation of pregnancy not specified
CPT/HCPCS: 36415; 59025; 82565; 82570; 84156; 84450; 84460; 84550; 85027; 85610; 85730; 99218; G0378

== ENCOUNTER → 2018-11-07 13:24 | Outpatient (CLI) | payer OTHER, SELFPAY ==
[2018-11-07 11:52] VITALS: BMI 33.5
== END ==
PROVIDERS: Family Provider Family Medicine; PCP Family Medicine; Referring Provider Obstetrics & Gynecology; Visit Provider Obstetrics & Gynecology
DX: Z34.93 Encounter for supervision of normal pregnancy, unspecified, third trimester (principal); Z3A.36 36 weeks gestation of pregnancy
CPT/HCPCS: 87081

== ENCOUNTER 2018-11-12 10:15 | Outpatient (CLI) | payer OTHER, SELFPAY ==
[2018-11-12 10:38] VITALS: BMI 33.5
[2018-11-12 10:45] VITALS: BMI 33.6
[2018-11-12 11:16] LABS: ROM Internal Control Test YES-OK TO RESULT pt. (Internal QC); ROM Patient Test Negative (Negative)
--- NOTE | 2018-11-12 11:32 | US_ITS ---
STUDY: SECOND AND THIRD TRIMESTER OBSTETRICAL ULTRASOUND - LIMITED REASON FOR EXAM: Female, 33 years old. LMP: PRIOR ULTRASOUND: None. TECHNIQUE: TECHNICAL QUALITY: Adequate. FINDINGS: There is a single intrauterine fetus. The fetus is in a cephalic presentation. The ANNALISE: 11.2, the largest fluid pocket is 6.2 cm. The movement detected. The heart rate is 140 bpm. The cervical length is 3.9 cm with the internal os closed. Electronically Signed: [facility] Tavares, at 13:05 EDT Tel , Service support , US/OB Limited (No Biometrics)
[2018-11-12 12:15] LABS: Color, Urine Yellow (Yellow); Glucose, Dipstick Normal (Normal); Ketone-Dipstick Negative (Negative); Leukocyte Esterase-Dipstick Negative /ul (Negative); Nitrite-Dipstick Negative (Negative); Occult Blood-Urine Negative /ul (Negative); Protein-Dipstick Negative (Negative); Urine Bilirubin Dipstick Negative (Negative); Urine Clarity Clear (Clear); Urine Urobilinogen Normal (Normal); Urine pH 6.5 (5.0 - 8.0)
--- NOTE | 2018-11-19 02:52 | OB.TRI.PN_ITS ---
Progress Notes Date of Service: 11/12/18 Progress Note: questionable LOF fht 130 moderate variability reactive no decelerations category I tracing [place]: no regular negative rom plus a/p false labor dc home reactive nst Laboratory Studies: Laboratory Tests 11/12/18 11/12/18 Range/Units 11:55 10:20 Urine Color Yellow (Yellow) Urine Clarity Clear (Clear) Urine pH 6.5 (5.0 - 8.0) Ur Specific [place] 1.010 (1.002-1.030) Urine Protein Negative (Negative) mg/dl Urine Glucose (UA) Normal (Normal) mg/dl Urine Ketones Negative (Negative) mg/dl Urine Occult Blood Negative (Negative) /ul Urine Nitrite Negative (Negative) Urine Bilirubin Negative (Negative) mg/dL Urine Urobilinogen Normal (Normal) mg/dl Ur Leukocyte Esterase Negative (Negative) /ul Vag Amniotic Fld Detect Negative (Negative)
== END 2018-11-12 14:25 | disposition home or self-care (01) ==
LOC: WPOUT 10:39 → WP 10:44
PROVIDERS: Family Provider Family Medicine; PCP Family Medicine; Referring Provider Obstetrics & Gynecology; Visit Provider Obstetrics & Gynecology
DX: O47.9 False labor, unspecified (principal); Z3A.00 Weeks of gestation of pregnancy not specified
CPT/HCPCS: 59025; 59050; 76815; 81002; 84112; 99218; G0378

== ENCOUNTER 2018-11-17 08:35 | Outpatient (CLI) | payer OTHER, SELFPAY ==
[2018-11-17 08:13] VITALS: BMI 33.7
[2018-11-17 09:06] VITALS: BMI 33.7
[2018-11-17 09:10] LABS: Protein, Urine (Random) < 6.0 mg/dL (<11.9)
[2018-11-17 09:21] LABS: Hematocrit 34.3 % (37-47); Hemoglobin 11.6 g/dl (12.0-15.0); Mean Corp Hgb Conc 33.8 g/gl (32-36); Mean Corpuscular Hgb 28.8 pg (27.0-32.0); Mean Corpuscular Volume 85.1 fL (81-99); Mean Platelet Vol. 12.4 fl (6.2-12.0); Platelet Count 172 K/mm3 (150-450); RBC Distribution Width CV 12.8 % (11.6-14.6); RBC Distribution Width SD 39.3 fl (35.1-43.9); Red Blood Count 4.03 M/mm3 (4.2-5.4); White Blood Count 10.6 K/mm3 (4.4-11.0)
[2018-11-17 09:22] LABS: Scan Indicated on CBC? Y/N NO
[2018-11-17 09:29] LABS: International Normalized Ratio 0.9; Partial Thromboplast Time 24.7 Seconds (24.1-36.2); Prothrombin Time (Protime)PT. 12.1 SECONDS (11.7-14.9)
[2018-11-17 09:31] LABS: AST(SGOT) 14 U/L (15-37); Alanine Aminotransfer ALT/SGPT 9 U/L (13-56); Creatinine, Serum 0.55 mg/dL (0.55-1.02); EST Glomerular Filtration Rate 138 mL/min (>60); Est Glom Filt Rate - Afr Amer 167 mL/min (>60); Estimated Creatinine Clearance 127.98 ml/min; Uric Acid 4.1 mg/dL (2.6-6.0)
--- NOTE | 2018-11-17 10:11 | OB.TRI.PN ---
Progress Notes Date of Service: 11/17/18 Progress Note: elevated bp in office repeat labs all WNL normal bps on l and d fht 130 moderate variability reactive no decelerations category I tracing [place]: none a/p elevated bp - repeats all WNL and normal labs Laboratory Studies: Laboratory Tests 11/17/18 11/17/18 11/17/18 Range/Units Unknown 09:00 09:00 WBC (4.4-11.0) K/mm3 RBC (4.2-5.4) M/mm3 Hgb (12.0-15.0) g/dl Hct (37-47) % MCV (81-99) fL MCH (27.0-32.0) pg MCHC (32-36) g/gl RDW (11.6-14.6) % RDW Differential (35.1-43.9) fl Plt Count (150-450) K/mm3 MPV (6.2-12.0) fl PT 12.1 (11.7-14.9) SECONDS INR 0.9 APTT 24.7 (24.1-36.2) Seconds Creatinine 0.55 (0.55-1.02) mg/dL Estim Creat Clear Calc 127.98 ml/min Est GFR (MDRD) Af Amer 167 (>60) mL/min Est GFR (MDRD) Non-Af 138 (>60) mL/min Uric Acid 4.1 (2.6-6.0) mg/dL AST 14 L (15-37) U/L ALT 9 L (13-56) U/L U Random Total Protein < 6.0 (<11.9) mg/dL Urine Creatinine 13.60 (NO RANGE EST.) mg/dL Protein/Creatinin Ratio TNP 11/17/18 Range/Units 09:00 WBC 10.6 (4.4-11.0) K/mm3 RBC 4.03 L (4.2-5.4) M/mm3 Hgb 11.6 L (12.0-15.0) g/dl Hct 34.3 L (37-47) % MCV 85.1 (81-99) fL MCH 28.8 (27.0-32.0) pg MCHC 33.8 (32-36) g/gl RDW 12.8 (11.6-14.6) % RDW Differential 39.3 (35.1-43.9) fl Plt Count 172 (150-450) K/mm3 MPV 12.4 H (6.2-12.0) fl PT (11.7-14.9) SECONDS INR APTT (24.1-36.2) Seconds Creatinine (0.55-1.02) mg/dL Estim Creat Clear Calc ml/min Est GFR (MDRD) Af Amer (>60) mL/min Est GFR (MDRD) Non-Af (>60) mL/min Uric Acid (2.6-6.0) mg/dL AST (15-37) U/L ALT (13-56) U/L U Random Total Protein (<11.9) mg/dL Urine Creatinine (NO RANGE EST.) mg/dL Protein/Creatinin Ratio
== END 2018-11-17 10:00 | disposition home or self-care (01) ==
LOC: WPOUT 08:42 → OBT 08:44
PROVIDERS: Family Provider Family Medicine; PCP Family Medicine; Referring Provider Obstetrics & Gynecology; Visit Provider Obstetrics & Gynecology
DX: O26.899 Other specified pregnancy related conditions, unspecified trimester (principal); R03.0 Elevated blood-pressure reading, without diagnosis of hypertension; Z3A.00 Weeks of gestation of pregnancy not specified
CPT/HCPCS: 36415; 59025; 59050; 82565; 82570; 84156; 84450; 84460; 84550; 85027; 85610; 85730; 99218; G0378

== ENCOUNTER 2018-11-18 13:30 | Inpatient (IN) | payer OTHER, SELFPAY ==
[2018-10-14 15:56] VITALS: BMI 30.4
[2018-11-17 09:06] VITALS: BMI 33.7
[2018-11-18 13:13] VITALS: BMI 29.3
[2018-11-18] MEDS: Oxytocin 30 units/NS 500 ml 30 UNITS/500 ML IV.SOLN IV (13:40)
[2018-11-18] MEDS: Lactated Ringers 1,000 ML 50 ML IV ×3 (13:55→20:45)
[2018-11-18 14:18] LABS: Hematocrit 34.2 % (37-47); Hemoglobin 11.5 g/dl (12.0-15.0); Mean Corp Hgb Conc 33.6 g/gl (32-36); Mean Corpuscular Hgb 28.3 pg (27.0-32.0); Mean Corpuscular Volume 84.2 fL (81-99); Mean Platelet Vol. 12.7 fl (6.2-12.0); Platelet Count 183 K/mm3 (150-450); RBC Distribution Width CV 12.6 % (11.6-14.6); RBC Distribution Width SD 37.9 fl (35.1-43.9); Red Blood Count 4.06 M/mm3 (4.2-5.4); White Blood Count 10.3 K/mm3 (4.4-11.0)
[2018-11-18 14:22] LABS: Scan Indicated on CBC? Y/N NO
[2018-11-18 14:28] LABS: AST(SGOT) 17 U/L (15-37); Alanine Aminotransfer ALT/SGPT 10 U/L (13-56); Creatinine, Serum 0.58 mg/dL (0.55-1.02); EST Glomerular Filtration Rate 128 mL/min (>60); Est Glom Filt Rate - Afr Amer 155 mL/min (>60); Uric Acid 4.1 mg/dL (2.6-6.0)
[2018-11-18 14:30] LABS: Partial Thromboplast Time 23.9 Seconds (24.1-36.2); Protein, Urine (Random) 7.5 mg/dL (<11.9); Protein:Creat Ratio 113 mg/g CRE (0-200); Prothrombin Time (Protime)PT. 12.5 SECONDS (11.7-14.9)
--- NOTE | 2018-11-18 14:30 | HP.PCM_ITS ---
- Problem List (1) Gestational hypertension affecting first Status: Acute (2) Elevated blood pressure affecting in third trimester, antepartum Status: Acute Comment: 10/31 eval in triage (3) Segmental and somatic dysfunction of pelvic region Status: Acute (4) Segmental and somatic dysfunction of sacral region Status: Acute (5) Segmental and somatic dysfunction of lumbar region Status: Acute (6) Status: Acute Qualifiers: Comment: genetic carrier and ntd screening declined. anatomy scan normal (7) Supervision of normal Status: Acute Qualifiers: Comment: PRR CAM 12/05/18 boy Izabela Gurinder (8) Abnormal Pap smear of cervix Status: Acute Qualifiers: Comment: LGSIL 2018 repeat pap hpv 07/08 History Final CAM: 12/05/18 Gestational age: 37 Weeks and 4 Days History of this : This is a 33 year-old, , at 37 weeks 4 days presents for induction of labor secondary to gestational hypertension. Patient has had intermittent headache and has been following blood pressures at home and as an outpatient has had some elevated in the 130s to 140s over 80s to 90s. Patient denies any visual changes. sHe has been having some irregular contractions. Medical History: Medical History (Last Reviewed 11/14/18 @ 08:31 by Valencia Cali) Abnormal Pap smear of cervix (Acute) R87.619 LGSIL 2017 repeat pap hpv 07/08 Surgical History: Surgical History (Last Reviewed 11/14/18 @ 08:31 by Valencia Cali) H/O hand surgery Z98.890 History of colposcopy Z98.890 Hx of cholecystectomy Z90.49 Allergies No Known Allergies Allergy (Verified 11/14/18 08:31) Home Medications: Home Medications vitamin#30 30 mg iron-10 mg iron-folic acid 1 mg-omg3 capsule 1 cap PO DAILY cap 05/06/18 Acetaminophen [Tylenol] 325 mg PO PRN PRN 11/03/18 Smoking Status: Never smoker Alcohol: None Number of Fetus(es): 1 Heart Tracin moderate variability reactive no decelerations category I tracing [place]: irregular History Past Pregnancies: Past Pregnancies Delivery Date Name GA/Weeks Outcome Route Weight Infant Gender Labor Length Anesthesia Delivery Location Provider FOB Labs: Mom's Labs & Results 11/18/18 11/18/1819 13:55 13:55 13:55 WBC 10.3 RBC 4.06 L Hgb 11.5 L Hct 34.2 L MCV 84.2 MCH 28.3 MCHC 33.6 RDW 12.6 RDW Differential 37.9 Plt Count 183 MPV 12.7 H PT Pending INR Pending APTT Pending Creatinine Est GFR (MDRD) Af Amer Est GFR (MDRD) Non-Af Uric Acid AST ALT U Random Total Protein 7.5 Urine Creatinine 66.50 Protein/Creatinin Ratio 113 Blood Type Antibody Screen 11/18/18 11/18/18 13:55 13:55 WBC RBC Hgb Hct MCV MCH MCHC RDW RDW Differential Plt Count MPV PT INR APTT Creatinine 0.58 Est GFR (MDRD) Af Amer 155 Est GFR (MDRD) Non-Af 128 Uric Acid 4.1 AST 17 ALT 10 L U Random Total Protein Urine Creatinine Protein/Creatinin Ratio Blood Type Pending Antibody Screen Pending Social History Smoking Status Never smoker Expected Infant Delivery Method: Spontaneous Vaginal Review of Systems Constitutional: Denies: Fever, Malaise Eyes: Denies: Blurred vision, Vision Change HEENT: Reports: Head Aches. Denies: Visual Changes Cardiovascular: Denies: Chest Pain, Palpitations Respiratory: Denies: Cough, Shortness of Breath, Wheezing Gastrointestinal: Denies: Abdominal Pain, Diarrhea, Nausea, Vomiting Genitourinary: Denies: Dysuria, Hematuria Musculoskeletal: Denies: Joint Pain, Muscle pain Skin: Denies: Lesions, Rash Neurological: Reports: Headaches. Denies: Blurred vision, Focal weakness Psychiatric: Denies: Anxiety, Depression Endocrine: Denies: Heat/ Cold Intolerance Hematologic/ Lymphatic: Denies: Easy Bruising, Easy Bleeding Physical Exam General: Alert, Cooperative, No apparent distress HEENT: Atraumatic, Normocephalic. Negative for: Thyromegaly, Lymphadenopathy Cardiovascular: Regular rate Lungs: Normal air movement Abdomen: Soft, Non Tender, Gravid Neurological: Deep Tendon Reflexes 2+/4 and Symmetrical, Neuro grossly intact. Negative for: Clonus [employer]: Normal external genitalia. Negative for: Vulvar lesions Estimated gestational size: Appropriate for gestational size Presentation: Cephalic Cervix Dilation (cm): 1.5 Station: -2 Effacement (%): 50 Assessment/Plan All Active Problems (Last Reviewed 11/14/18 @ 08:31 by Valencia Cali) Gestational hypertension affecting first (Acute) Elevated blood pressure affecting in third trimester, antepartum (Acute) Segmental and somatic dysfunction of pelvic region (Acute) Segmental and somatic dysfunction of sacral region (Acute) Segmental and somatic dysfunction of lumbar region (Acute) (Acute) Supervision of normal (Acute) Abnormal Pap smear of cervix (Acute) Immune to parvovirus (Resolved) Parvovirus exposure (Resolved) This is a 33 year-old, , at weeks gestational age presents for IOL GHTN. Patient presents IOL, plan management for , pitocin/AROM after jorge bulb has been placed. Pain management: Plans epidural. GBS negative. Management of any complications: Repeat preeclampsia panel I have reviewed the [facility] and made any clinically relevant updates.
[2018-11-18] MEDS: Ondansetron 4 MG/2 ML Vial IV ×2 (14:32→20:32)
[2018-11-18] MEDS: 0.9% Normal Saline 100 ML IV.SOLN. INTRA-UTER (16:10)
[2018-11-18] MEDS: Nalbuphine 10 MG/ML Ampul IV (16:50)
[2018-11-18] MEDS: fentaNYL-bupivacaine (epidural) 100 ML BAG EPIDURAL ×2 (18:02→22:20)
[2018-11-18] MEDS: Acetaminophen 325 MG Tablet PO (19:53)
[2018-11-18] MEDS: proCHLORPERazine 10 MG/2 ML Vial IV (23:35)
[2018-11-18] MEDS: Mag Hydrox/Al Hydrox/Simeth 30 ML UDC PO (23:36)
[2018-11-19] MEDS: Lactated Ringers 1,000 ML 50 ML IV ×3 (00:39→09:31)
--- NOTE | 2018-11-19 01:46 | PCM.PN.BLA ---
Progress Note fht 150s moderate variability reactive no decelerations category I tracing [place]: regular but not adequate s/p srom clear fluid, bps WNL, no ALARCON. continue pit per protocol
[2018-11-19] MEDS: fentaNYL-bupivacaine (epidural) 100 ML BAG EPIDURAL (05:20)
[2018-11-19] MEDS: proCHLORPERazine 10 MG/2 ML Vial IV (07:36)
[2018-11-19] MEDS: Oxytocin 30 units/NS 500 ml 30 UNITS/500 ML IV.SOLN 334 UNITS IV (14:42)
--- NOTE | 2018-11-19 15:04 | PCM.OPRPT ---
Problem List (1) Gestational hypertension affecting first Status: Acute (2) Elevated blood pressure affecting in third trimester, antepartum Status: Acute Comment: 10/31 eval in triage (3) Segmental and somatic dysfunction of pelvic region Status: Acute (4) Segmental and somatic dysfunction of sacral region Status: Acute (5) Segmental and somatic dysfunction of lumbar region Status: Acute (6) Status: Acute Qualifiers: Comment: genetic carrier and ntd screening declined. anatomy scan normal (7) Supervision of normal Status: Acute Qualifiers: Comment: PRR CAM 12/05/18 boy Izabela Gurinder (8) Abnormal Pap smear of cervix Status: Acute Qualifiers: Comment: LGSIL 2018 repeat pap hpv 07/08 Delivery Description of Procedure: Patient proceed to complete and began pushing. She developed tachycardia with minimal variability and recurrent variable and occasional late decelerations therefore the decision to perform an operative vaginal delivery was made. It was in the +3 station. If it was felt to be FOZIA but slightly asynclitic. Vacuum was applied and ports were made with 3 contractions with 2 pop offs. A midline episiotomy was cut. total duration of back and application was less than 10 minutes. Head delivered followed by the anterior and posterior shoulders without complication the rest the delivered was placed on maternal abdomen. Delayed cord clamping was employed and cord was clamped and cut. Episiotomy was noted to have a partial third-degree extension and therefore the anal sphincter capsule and muscle reapproximated with 2 [id number] stitches of 2-0 PDS. The rest of the repair was closed in the usual fashion with 3-0 Vicryl repeat. EBL 400 cc. No complications Amniotic Fluid Description: Clear Placenta Disposition: [facility] Specimen(s) sent to pathology: no Drain: Sims to straight drain Cord Entanglement: None Esitmated Blood Loss (ml): 400 Infant Gender: Male Delayed cord clamping: Yes
[2018-11-19] MEDS: Oxytocin 30 units/NS 500 ml 30 UNITS/500 ML IV.SOLN 167 UNITS IV (15:12)
[2018-11-19] MEDS: Dibucaine 30 GM Tube 1 APPLIC TOPICAL (16:00)
[2018-11-19] MEDS: Ketorolac 10 MG Tablet PO ×2 (16:01→21:56)
[2018-11-19] MEDS: Acetaminophen 500 MG Tablet 1000 MG PO (19:27)
[2018-11-19 20:42] VITALS: BP 130/77; PULSE 97; RESP 18; TEMP 36.9
[2018-11-20] VITALS: BP 119/79; PULSE 90; RESP 20; TEMP 37.1
[2018-11-20] MEDS: oxyCODONE 5 MG Tablet PO (00:04)
[2018-11-20 04:00] VITALS: BP 109/74; PULSE 95; RESP 18; TEMP 36.9
[2018-11-20] MEDS: Ketorolac 10 MG Tablet PO ×4 (04:03→21:59)
--- NOTE | 2018-11-20 06:58 | PCM.PN.OB ---
Patient Problems: Active and Suspected Problems (Last Reviewed 11/14/18 @ 08:31 by Valencia Cali) Gestational hypertension affecting first (Acute) Subjective: doing well no complaints pain controlled no CP SOB N V ambulating well tolerating po lochia moderate, going well - Physical Exam General: Alert, Oriented x3 Vital Signs Temp Pulse Resp BP 98.5 F 95 18 109/74 11/20/18 04:00 11/20/18 04:00 11/20/18 04:00 11/20/18 04:00 Oxygen Delivery Method Room Air Weight: 171 lb Body Mass Index (BMI) 29.3 Intake and Output for Last 24 Hours 11/18/18 11/19/18 11/20/18 23:59 23:59 23:59 Intake Total 453 / 453 8489 / 8489 Output Total 600 / 600 4500 / 4500 Balance -147 / -147 3989 / 3989 Medical Necessity - Tobacco Use Smoking Status: Never smoker Assessment/Plan All Active Problems (Last Reviewed 11/14/18 @ 08:31 by Valencia Cali) Gestational hypertension affecting first (Acute) Elevated blood pressure affecting in third trimester, antepartum (Acute) Segmental and somatic dysfunction of pelvic region (Acute) Segmental and somatic dysfunction of sacral region (Acute) Segmental and somatic dysfunction of lumbar region (Acute) (Acute) Supervision of normal (Acute) Abnormal Pap smear of cervix (Acute) Immune to parvovirus (Resolved) Parvovirus exposure (Resolved) s/p PPD # 1 1. routine post delivery care 2. breast feeding- support given 3. rh positive 4. rubella immune
[2018-11-20] MEDS: Senna/Docusate Sodium 1 Tablet PO ×2 (07:56→18:40)
[2018-11-20] MEDS: Acetaminophen 500 MG Tablet 1000 MG PO ×2 (07:57→18:39)
[2018-11-20 08:07] VITALS: BP 125/83; PULSE 87; RESP 16; TEMP 37.1; O2SAT 99
[2018-11-20 13:02] VITALS: BP 117/77; PULSE 90; RESP 16; TEMP 36.9; O2SAT 99
[2018-11-20] MEDS: Dibucaine 30 GM Tube 1 APPLIC TOPICAL (13:21)
[2018-11-20 20:48] VITALS: BP 114/76; PULSE 85; RESP 18; TEMP 36.6
[2018-11-21 03:05] VITALS: BP 110/76; PULSE 88; RESP 18; TEMP 36.7
[2018-11-21] MEDS: Acetaminophen 500 MG Tablet 1000 MG PO (03:31)
[2018-11-21 07:38] VITALS: BP 112/72; PULSE 75; RESP 16; TEMP 37; O2SAT 96
--- NOTE | 2018-11-21 07:43 | PCM.PN.OB ---
Patient Problems: Active and Suspected Problems (Last Reviewed 11/14/18 @ 08:31 by Valencia Cali) Gestational hypertension affecting first (Acute) Subjective: doing well no complaints pain controlled no CP SOB N V ambulating well tolerating po lochia moderate, going well - Physical Exam General: Alert, Oriented x3 Abdomen: Soft, Non Tender, Non-Distended, - - FF below U Vital Signs Temp Pulse Resp BP Pulse Ox 98.6 F 75 16 112/72 96 11/21/18 07:38 11/21/18 07:38 11/21/18 07:38 11/21/18 07:38 11/21/18 07:38 Oxygen Delivery Method Room Air Weight: 171 lb Body Mass Index (BMI) 29.3 Intake and Output for Last 24 Hours 11/19/18 11/20/18 11/21/18 23:59 23:59 23:59 Intake Total 8489 / 8489 Output Total 4500 / 4500 Balance 3989 / 3989 Medical Necessity - Tobacco Use Smoking Status: Never smoker Assessment/Plan All Active Problems (Last Reviewed 11/14/18 @ 08:31 by Valencia Cali) Gestational hypertension affecting first (Acute) Elevated blood pressure affecting in third trimester, antepartum (Acute) Segmental and somatic dysfunction of pelvic region (Acute) Segmental and somatic dysfunction of sacral region (Acute) Segmental and somatic dysfunction of lumbar region (Acute) (Acute) Supervision of normal (Acute) Abnormal Pap smear of cervix (Acute) Immune to parvovirus (Resolved) Parvovirus exposure (Resolved) s/p PPD # 2 1. routine post delivery care 2. breast feeding- support given 3. rh positive 4. rubella immune 5. Encourage stool softener 6. Home today
--- NOTE | 2018-11-21 07:44 | DCINST_ITS ---
Additional Instructions: If you experience any of the following, contact your healthcare provider. * Bleeding that soaks a pad every hour for 2 hours * Fever 100.4 or higher * Unrelieved incision or abdominal pain * Swelling, redness, discharge or bleeding from your incision or episiotomy site * Your incision begins to separate * Problems urinating (including inability to urinate or burning while urinating). * Visual changes * Severe headache * Flu-like symptoms * Pain or redness in one of both of your breasts * Pain, warmth, tenderness or swelling in your legs, especially the calf area * Frequent nausea and vomiting * Symptoms of depression or anxiety If you experience any of the following, call 911 or go to the nearest Emergency Room. * Chest pain * Problems breathing * Seizure activity * Partial or complete paralysis of a body part, slurred speech, weakness or drooping of the face, or a sudden inability to walk or hold your balance Allergies/Adverse Reactions: Allergies No Known Allergies Allergy (Verified 11/14/18 08:31) Medications to take at Discharge vitamin#30 30 mg iron-10 mg iron-folic acid 1 mg-omg3 capsule 1 cap PO DAILY cap 05/06/18 Acetaminophen [Tylenol] 325 mg PO PRN PRN 11/03/18 Primary Care Physician: Kemal Jeter MD [Primary Care Provider] - Test Results: Test results from this visit will be discussed in further detail at your follow- up appointment, if applicable.
--- NOTE | 2018-11-21 07:44 | PCM.DCVAG ---
Additional Instructions: If you experience any of the following, contact your healthcare provider. Bleeding that soaks a pad every hour for 2 hours Fever 100.4 or higher Unrelieved incision or abdominal pain Swelling, redness, discharge or bleeding from your incision or episiotomy site Your incision begins to separate Problems urinating (including inability to urinate or burning while urinating). Visual changes Severe headache Flu-like symptoms Pain or redness in one of both of your breasts Pain, warmth, tenderness or swelling in your legs, especially the calf area Frequent nausea and vomiting Symptoms of depression or anxiety If you experience any of the following, call 911 or go to the nearest Emergency Room. Chest pain Problems breathing Seizure activity Partial or complete paralysis of a body part, slurred speech, weakness or drooping of the face, or a sudden inability to walk or hold your balance Allergies/Adverse Reactions: Allergies No Known Allergies Allergy (Verified 11/14/18 08:31) Medications to take at Discharge vitamin#30 30 mg iron-10 mg iron-folic acid 1 mg-omg3 capsule 1 cap PO DAILY cap 05/06/18 Acetaminophen [Tylenol] 325 mg PO PRN PRN 11/03/18 Primary Care Physician: Kemal Jeter MD [Primary Care Provider] - Test Results: Test results from this visit will be discussed in further detail at your follow-up appointment, if applicable.
[2018-11-21] MEDS: Ketorolac 10 MG Tablet PO (07:50)
[2018-11-21] MEDS: Dibucaine 30 GM Tube 1 APPLIC TOPICAL (07:51)
[2018-11-21] MEDS: Senna/Docusate Sodium 1 Tablet PO (07:51)
--- NOTE | 2018-11-27 19:14 | NURSING ---
Mother and baby doing well. Mother exclusively pumping 6-8 oz at a time and baby taking 2 oz at a feeding. Baby voiding and stooling .
== END 2018-11-21 09:55 | disposition home or self-care (01) | DRG 805 ==
LOC: WPOUT 13:32
PROVIDERS: Admitting Provider Obstetrics & Gynecology; Family Provider Family Medicine; PCP Family Medicine; Referring Provider Obstetrics & Gynecology; Visit Provider Obstetrics & Gynecology
DX: O76 Abnormality in fetal heart rate and rhythm complicating labor and delivery (principal); O60.14X0 Preterm labor third trimester with preterm delivery third trimester, not applicable or unspecified; Z37.0 Single live birth; O13.4 Gestational [pregnancy-induced] hypertension without significant proteinuria, complicating childbirth; O26.893 Other specified pregnancy related conditions, third trimester; M99.03 Segmental and somatic dysfunction of lumbar region; M99.04 Segmental and somatic dysfunction of sacral region; M99.05 Segmental and somatic dysfunction of pelvic region; Z90.49 Acquired absence of other specified parts of digestive tract; Z3A.37 37 weeks gestation of pregnancy
CPT/HCPCS: 59025; 59050; 82565; 82570; 84156; 84450; 84460; 84550; 85027; 85610; 85730; 86850; 86900; 99218; J7120; G0378; J2405

== ENCOUNTER → 2019-01-02 16:30 | Outpatient (CLI) | payer OTHER, SELFPAY ==
[2019-01-02 14:29] VITALS: BMI 29.3
[2019-01-12 13:42] LABS: HPV APTIMA, High Risk Negative (Negative)
== END ==
PROVIDERS: Family Provider Family Medicine; PCP Family Medicine; Referring Provider Obstetrics & Gynecology; Visit Provider Obstetrics & Gynecology
DX: Z12.4 Encounter for screening for malignant neoplasm of cervix (principal)
CPT/HCPCS: 87624; 88175; G0145

== ENCOUNTER → 2019-12-10 11:03 | Outpatient (CLI) | payer OTHER, SELFPAY ==
[2019-01-02 14:29] VITALS: BMI 29.3
== END ==
PROVIDERS: PCP Family Medicine; Visit Provider Internal Medicine Pulmonary Disease
DX: R50.9 Fever, unspecified (principal); R43.9 Unspecified disturbances of smell and taste
CPT/HCPCS: 87635; G2023; U0003

== ENCOUNTER → 2020-11-15 08:51 | Outpatient (CLI) | payer OTHER, SELFPAY ==
[2020-11-15 08:12] VITALS: BMI 27.4
[2020-11-15 09:23] LABS: Absolute Lymphocyte Count 2.05 X10^3/uL (0.83-4.51); Absolute Neutrophil Count 4.5 X10^3/uL (2.0-7.7); Basophil# 0.07 X10^3/uL; Eosinophil# 0.08 X10^3/uL; Eosinophils% 1.1 % (0-5); Hematocrit 42.9 % (37-47); Hemoglobin 14.5 g/dL (12.0-15.0); Lymphocyte # 2.05 X10^3/ul (0.83-4.51); Mean Corp Hgb Conc 33.8 g/dL (32-36); Mean Corpuscular Hgb 29.4 pg (27.0-32.0); Mean Corpuscular Volume 86.8 fL (81-99); Mean Platelet Vol. 12.1 fl (6.2-12.0); Monocyte# 0.59 X10^3/uL; Monocyte% 8.1 % (0-10); NRBC Flagged by Analyzer 0 % (0-5); Neutrophil # 4.51 X10^3/uL (2.7-7.7); Neutrophil % 61.7 % (47-70); Platelet Count 207 K/mm3 (150-450); RBC Distribution Width CV 12.2 % (11.6-14.6); RBC Distribution Width SD 38.5 fl (35.1-43.9); Red Blood Count 4.94 M/mm3 (4.2-5.4); White Blood Count 7.3 K/mm3 (4.4-11.0)
[2020-11-15 10:00] LABS: Vitamin D,25 Hydroxy 28.5 ng/mL
[2020-11-15 10:08] LABS: Prolactin 4.3 ng/mL; Thyroid Stim Hormone (TSH) 3.03 uIU/mL (0.358-3.74)
[2020-11-19 07:26] LABS: HPV APTIMA, High Risk Positive (Negative)
== END ==
PROVIDERS: PCP Family Medicine; Referring Provider Nurse Practitioner Women's Health; Visit Provider Nurse Practitioner Women's Health
DX: Z12.4 Encounter for screening for malignant neoplasm of cervix (principal); Z13.21 Encounter for screening for nutritional disorder; R53.83 Other fatigue
CPT/HCPCS: 36415; 82306; 84146; 84443; 85025; 87624; 88175; G0145

== ENCOUNTER 2020-12-06 10:20 | Day surgery (SDC) | payer OTHER, SELFPAY ==
[2020-11-15 08:12] VITALS: BMI 27.4
[2020-12-05 10:41] LABS: Absolute Lymphocyte Count 2.34 X10^3/uL (0.83-4.51); Absolute Neutrophil Count 4.6 X10^3/uL (2.0-7.7); Basophil# 0.05 X10^3/uL; Basophil% 0.7 % (0-1); Eosinophil# 0.11 X10^3/uL; Eosinophils% 1.4 % (0-5); Hematocrit 40.6 % (37-47); Hemoglobin 13.6 g/dL (12.0-15.0); Lymphocyte # 2.34 X10^3/ul (0.83-4.51); Lymphocyte % 30.5 % (19-41); Mean Corp Hgb Conc 33.5 g/dL (32-36); Mean Corpuscular Hgb 28.9 pg (27.0-32.0); Mean Corpuscular Volume 86.4 fL (81-99); Mean Platelet Vol. 12.8 fl (6.2-12.0); Monocyte# 0.58 X10^3/uL; Monocyte% 7.6 % (0-10); NRBC Flagged by Analyzer 0 % (0-5); Neutrophil # 4.55 X10^3/uL (2.7-7.7); Neutrophil % 59.4 % (47-70); Platelet Count 204 K/mm3 (150-450); RBC Distribution Width SD 38.2 fl (35.1-43.9); White Blood Count 7.7 K/mm3 (4.4-11.0)
[2020-12-06] VITALS (8 sets, daily range): BP systolic 91–128; BP diastolic 58–78; PULSE 68–84; RESP 16–18; TEMP 36.1–36.2; O2SAT 96–100; BMI 27.3
--- NOTE | 2020-12-06 | IMM_PTH ---
PATIENT: PIEDAD TURNER LOC: [facility] [place][id number] AGE/SX: 35/F ROOM: RE12/06/[address]: Dr. Vaishali March MD : 1985 BED: DIS: 12/06/2020 SPEC #: [id number] RECD: 12/08/20 13:00 STATUS: MONE REJoaquina #: [id number] ANTOINETTE: 12/06/20 00:[address]: Vaishali March DEPT: IMMUNOHISTOCHEMISTRY RECD BY: Layla Singh ENTERED: 12/08/20 13:01 SP TYPE: IMMUNO OTHR DR: Dr. Kemal Jeter MD Tissues: A - UTERINE CERVIX LEEP Procedures: p16 (initial) KI-67 (add) PHYSICIAN & INSTITUTION [place] [id number] SPECIMEN INFORMATION: Tissue Source: A ? LEEP biopsy Clinical Info: DESMOND III Specimen Number: [id number] CPT code: 87573, 02008 METHODOLOGY: Deparaffinized sections of prefer/formalin-fixed tissue or PAP/DQ stained slides are incubated with monoclonal/polyclonal antibodies/oligonucleotide probes. Localization is made via biotin free immunoperoxidase method. Appropriate controls are performed and reacted as expected. Results on target cell population are indicated in the following table: RESULTS: ANTIBODY / CLONE RESULT Block A3 P16 (E6H4) positive, block staining Ki-67 (30-9) positive, moderate to high These tests were developed and their performance characteristics determined by [facility]. They may not have been cleared or approved by the U.S. Food and Drug Administration. The FDA has determined that such clearance or approval is not necessary. The above immunohistochemical/dualISH markers are ordered and reviewed by the Pathologist. 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 BUTCH:riley 12/09/2020
[2020-12-06] MEDS: Lactated Ringers 1,000 ML 100 ML IV (10:30)
[2020-12-06 10:44] LABS: Internal QC Validated? YES +Cl - CLEAR BKGD; Pregnancy, Urine Negative Negative
--- NOTE | 2020-12-06 11:18 | HP.PCM_ITS ---
HPI - General HPI Narrative PIEDAD TURNER, is a 35 F who presents with DESMOND-3 on Pap smear for surgical management. [facility] Medical History (Updated 12/06/20 @ 11:[address] Vaishali March MD) Abnormal Pap smear of cervix Asthma Easy bruising Gastric reflux Hypertension Injury of head and neck Non-smoker Open wound Seasonal allergies Wears contact lenses Wears glasses Home Medications vitamin#30 30 mg iron-10 mg iron-folic acid 1 mg-omg3 capsule 1 cap PO DAILY cap 05/06/18 [History Last Taken 11/11/18] estradiol See Rx Instructions VAGINAL .COMPLEX #42.5 g 11/15/20 [Rx Last Taken Unknown] cetirizine [Zyrtec] 10 mg PO DAILY 11/29/20 [History Last Taken Unknown] Allergy/AdvReac Type Severity Reaction Status Date / Time No Known Allergies Allergy Verified 12/06/20 10:49 Family History Grandmother Heart disease Cancer pancreatic cancer Surgical History H/O hand surgery History of colposcopy Hx of cholecystectomy Social History (Updated 11/15/20 @ 08:15 by Anita Louise) Smoking Status: Never smoker alcohol intake: never substance use type: does not use caffeine: Yes frequency: 3-4 times per week seatbelt use: always do you feel safe at home: Yes additional social history: - Gurinder works at [employer] 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 ROS Review of Systems ROS Unobtainable: due to mental status and other Constitutional Constitutional: Reports systems reviewed and no addt'l complaints, except as documented; Denies as per HPI, change in weight, fatigue, fever(s), malaise, weakness or other Eyes Eyes: Reports systems reviewed and no addt'l complaints, except as documented; Denies as per HPI, change in vision or other ENT HEENT: Reports systems reviewed and no addt'l complaints, except as documented Respiratory/Chest Respiratory/Chest: Reports systems reviewed and no addt'l complaints, except as documented Gastrointestinal Gastrointestinal: Reports systems reviewed and no addt'l complaints, except as documented and as per HPI Genitourinary Genitourinary: Reports as per HPI Musculoskeletal Musculoskeletal: Reports systems reviewed and no addt'l complaints, except as documented Neurologic Neurologic: Reports systems reviewed and no addt'l complaints, except as documented Psychiatric Psychiatric: Reports systems reviewed and no addt'l complaints, except as documented Endocrine Endocrinology: Reports systems reviewed and no addt'l complaints, except as documented Hematologic/Lymphatic Hematologic/Lymphatic: Reports systems reviewed and no addt'l complaints, except as documented Vital Signs Vital Signs Vital Signs: 12/06/20 10:50 Temperature 97.1 F L Temperature Source Temporal Pulse Rate 78 Respiratory Rate 16 Respiratory Pattern Normal Blood Pressure 128/75 H Blood Pressure Mean 92 Blood Pressure Source Monitor Blood Pressure Position Semi-Fowlers Blood Pressure Location Left Arm Pulse Ox 97 Oxygen Delivery Method Room Air Weight Weight: 159 lb 9.835 oz Body Mass Index (BMI) 27.3 Physical Exam Const alert, oriented x3 and no apparent distress HEENT normocephalic Head and Scalp: atraumatic Eyes EOMs intact bilaterally and conjunctivae normal Neck full ROM, no lymphadenopathy, supple and thyroid normal General: trachea midline Lymph Lymphatic: no lymphadenopathy noted Resp normal respiratory effort, no retractions, no use of accessory muscles and clear to auscultation bilaterally Cardio regular rhythm GI normal to inspection, nondistended, normoactive bowel sounds, soft to palpation, non-distended and no masses Inspection: Negative for abdominal distention Back/Spine no CVA tenderness Extremity normal to inspection Skin no rashes or lesions noted Neuro moves all extremities and deep tendon reflexes 2+ bilaterally Psych mental status grossly normal Results Lab / Micro Data Result Diagrams: 12/05/20 08:57 Labs: Laboratory Results - last 24 hr 12/05/20 08:57: Blood Type A POSITIVE, Antibody Screen NEGATIVE 12/06/20 10:30: Urine Test Negative Micro: Microbiology 12/05/20 08:45 Interface Orders SARS-CoV-2 Antigen (Rapid) - Final Assessment & Plan Assessment/Plan (1) DESMOND III (cervical intraepithelial neoplasia III): PLAN: After discussing the patient's diagnosis and treatment plan options, patient wishes to proceed with surgical management. I have discussed with the patient the risks, benefits, and alternatives of the procedure which include but are not limited to risks of anesthesia, bleeding, infection, possible damage to bowel, bladder, or surrounding vasculature which could lead to additional surgery to evaluate any complications. Patient agrees to procedure and wishes to proceed. ACOG/uptodate references given for additional information regarding procedure.
--- NOTE | 2020-12-06 12:05 | CONE_PTH ---
PATIENT: PIEDAD TURNER LOC: [facility] U#:[id number] AGE/SX: 35/F ROOM: RE12/06/[address]: Dr. Vaishali March MD : 1985 BED: DIS: 12/06/2020 SPEC #: [id number] RECD: 12/06/20 14:04 STATUS: MONE JORDAN #: [id number] ANTOINETTE: 12/06/20 12:[address]: Vaishali March DEPT: SURGICAL PATHOLOGY RECD BY: Jennifer Dejesus ENTERED: 12/07/20 09:31 SP TYPE: Leep Cone VINCE DR: Dr. Kemal Jeter MD Tissues: A - UTERINE CERVIX LEEP B - Endocervical Procedures: Surgery Specimen Level IV Surgery Specimen Level V HEADER OPERATION: LEEP cone, colposcopy PRE-OP DIAGNOSIS: DESMOND III TISSUE SUBMITTED: A ? LEEP biopsy, B ? Endocervical curettings MICROSCOPIC DIAGNOSIS A. Cervix, LEEP conization: Focal moderate to severe squamous dysplasia (HGSIL and DESMOND II-III). Dysplastic changes also involve endocervical glands. Acute and chronic cystic cervicitis. Resection margins are free of dysplastic changes. See comment. B. Endocervical curettings: Fragments of benign endocervical epithelium. Fragments of benign endometrial tissue, consistent with interval endometrium. Negative for dysplasia. SJ:riley 12/08/2020 COMMENT A. Immunohistochemistry ([id number]) for surrogate HPV marker (p16) supports the above diagnosis. Case has been reviewed in consultation with Dr. Davis who concurs with the above diagnosis. IDC:AM MICROSCOPIC DESCRIPTION Slides are reviewed. GROSS DESCRIPTION A - Received in fixative is one container labeled with the patient's name and designated LEEP biopsy. The specimen consists of a previously opened piece of LEEP conization measuring 3 x 1.5 x 0.5 cm. No mucosal lesion is identified. Nonmucosal surface is inked black. The specimen is presumed to be opened at 12 o?clock position. Sections reveal focal cystic changes. The entire specimen is submitted in four cassettes as follows: 1 - 12 to 3 o?clock, 2 - 3 to 6 o?clock, 3 - 6 to 9 o?clock, 4 - 9 to 12 o?clock. B - Received in fixative is one container labeled with the patient's name and designated endocervical curettings. The specimen consists of scant fragments of gabriel mucoid tissue measuring in aggregate 0.5 x 0.5 x 0.1 cm. The specimen is totally submitted in one cassette. / BUTCH:riley 12/07/20 TC:5 CPT: 03201, 92089
[2020-12-06] MEDS: Iodine/Potassium Iodide 14ML Bottle 1 DRP TOPICAL (13:32)
[2020-12-06] MEDS: Lidocaine 1% (20 ml mdv) 20 ML Vial (13:35)
[2020-12-06] MEDS: FERRIC SUBSULFATE 8 GM SOLN (13:38)
--- NOTE | 2020-12-06 13:41 | PCM.OPRPT ---
Problems Associated Problem List Diagnoses (1) DESMOND III (cervical intraepithelial neoplasia III): Report of Operation Date of Procedure: 12/06/20 Pre-Operative Diagnosis: see problem list Post-Operative Diagnosis: same Surgery/Procedure Performed:: LEEP procedure Description of Surgical Findings:: grossly nl cervix, high grade lesions on colposcopy therapist speech: None Type of Anesthesia: Local MAC Special Medications: monsels paste Specimen's removed: cervix ecc Drains: none Estimated Blood Loss (mL): 50 Fluids Replaced: crystalloid Description of Procedure: Colposcopy was performed using Lugol's and abnormal cells were visualized both on the anterior and posterior cervical lips reflecting high-grade changes. Paracervical block was placed with 1% lidocaine and using a loop electrode the outer part of the cervix was removed including the squamocolumnar junction. Endocervical curettings were taken and the base of the cervix was cauterized around the borders and the base to obtain excellent hemostasis. Monsel's paste was placed and patient was awoken and taken recovery in stable condition. Grafts/Implants Used: none Complications none Admit VTE Documentation VTE Present on Admission: No VTE Mechan Device Prophylaxis: SCD's Multi Select Codes Urinary/Genital Urinary/Genital CPT Codes: 82389 LEEP + [place] and 02104 Endocervical curettage
--- NOTE | 2020-12-06 13:43 | EX.PCM.DISCH ---
Discharge Instructions Procedure LEEP Diet Discharge Diet: No restrictions Activity Discharge Activity: Return to Normal Activity and May Not Drive (while taking narcotic pain medications.) May resume sexual activity in: 4 weeks (Nothing in the vagina for 4 weeks.) Dressing / Incision Call your doctor if you observe: Fever of 101 or Higher and Using more than 1 pad per hour Follow Up Care Please Follow Up With: Vaishali March MD When: Call [phone] for follow-up appointment. Test Results: Test results from this visit will be discussed in further detail at your follow-up appointment, if applicable. Discharge Plan Admission Attending Provider: Vaishali March Primary Care Provider: Kemal Jeter Discharge Orders/Prescriptions Prescriptions: No Action vitamin#30 30 mg iron-10 mg iron-folic acid 1 mg-omg3 capsule 30 mg iron-10 mg iron-1 mg capsule 1 cap PO DAILY RF: 0 estradiol 0.01 % (0.1 mg/gram) cream See Rx Instructions vaginal .COMPLEX Qty: 42.5 RF: 2 Zyrtec 10 mg Capsule 10 mg PO DAILY RF: 0
[2020-12-06] MEDS: HYDROcodone Bitartrate/Apap 5/325 Tablet PO (14:53)
== END 2020-12-06 15:24 | disposition home or self-care (01) ==
LOC: SDC 10:20 → AC 10:23
PROVIDERS: PCP Family Medicine; Referring Provider Obstetrics & Gynecology; Visit Provider Obstetrics & Gynecology
PROC: 0UBC7ZZ Excision of Cervix, Via Natural or Artificial Opening (ICD-10-PCS; CPT 57522; principal; 2020-12-06 11:50)
DX: D06.9 Carcinoma in situ of cervix, unspecified (principal); N72 Inflammatory disease of cervix uteri; I10 Essential (primary) hypertension; K21.9 Gastro-esophageal reflux disease without esophagitis; J45.909 Unspecified asthma, uncomplicated; Z90.49 Acquired absence of other specified parts of digestive tract
CPT/HCPCS: 00940; 57461; 57505; 36415; 81025; 85025; 86850; 86900; 86901; 87426; 88305; 88307; 88341; 88342; C9803; J7120

== ENCOUNTER → 2021-01-09 16:12 | Outpatient (CLI) | payer OTHER, SELFPAY | PROVIDERS: PCP Family Medicine; Referring Provider Obstetrics & Gynecology; Visit Provider Obstetrics & Gynecology | DX: N91.2 Amenorrhea, unspecified (principal) | CPT/HCPCS: 36415; 84702 ==

== ENCOUNTER → 2021-02-16 16:50 | Outpatient (CLI) | payer OTHER, SELFPAY ==
[2021-02-16 18:08] LABS: hCG Titer Quant., Serum 33522 mIU/mL (1-3)
== END ==
PROVIDERS: PCP Family Medicine; Referring Provider Obstetrics & Gynecology; Visit Provider Obstetrics & Gynecology
DX: N91.2 Amenorrhea, unspecified (principal)
CPT/HCPCS: 36415; 84702

== ENCOUNTER → 2021-02-18 11:05 | Outpatient (CLI) | payer OTHER, SELFPAY ==
[2021-02-18 11:37] LABS: Absolute Lymphocyte Count 2.18 X10^3/uL (0.83-4.51); Basophil# 0.07 X10^3/uL; Basophil% 0.6 % (0-1); Eosinophil# 0.12 X10^3/uL; Eosinophils% 1.1 % (0-5); Hematocrit 35.5 % (37-47); Hemoglobin 12.3 g/dL (12.0-15.0); Lymphocyte # 2.18 X10^3/ul (0.83-4.51); Lymphocyte % 19.9 % (19-41); Mean Corp Hgb Conc 34.6 g/dL (32-36); Mean Corpuscular Hgb 29.9 pg (27.0-32.0); Mean Corpuscular Volume 86.2 fL (81-99); Mean Platelet Vol. 11.5 fl (6.2-12.0); Monocyte# 0.59 X10^3/uL; Monocyte% 5.4 % (0-10); NRBC Flagged by Analyzer 0 % (0-5); Neutrophil # 7.96 X10^3/uL (2.7-7.7); Neutrophil % 72.5 % (47-70); Platelet Count 185 K/mm3 (150-450); RBC Distribution Width SD 37.9 fl (35.1-43.9); Red Blood Count 4.12 M/mm3 (4.2-5.4)
[2021-02-20 09:34] LABS: HIV - WCH Non-Reactive (Nonreactive); Hepatitis B Surface Antigen Non-Reactive (Nonreactive); Hepatitis C Antibody Non-Reactive (Nonreactive); Rubella IgG Reactive (Nonreactive); Syphilis Antibodies Non-reactive
== END ==
PROVIDERS: PCP Family Medicine; Referring Provider Obstetrics & Gynecology; Visit Provider Obstetrics & Gynecology
DX: O09.90 Supervision of high risk pregnancy, unspecified, unspecified trimester (principal); Z3A.00 Weeks of gestation of pregnancy not specified
CPT/HCPCS: 36415; 85025; 86703; 86762; 86780; 86803; 86850; 86900; 86901; 87340

== ENCOUNTER 2021-05-26 06:14 | Outpatient (CLI) | payer OTHER, SELFPAY ==
[2021-05-26 07:18] LABS: Absolute Lymphocyte Count 1.71 X10^3/uL (0.83-4.51); Absolute Neutrophil Count 7.8 X10^3/uL (2.0-7.7); Basophil# 0.06 X10^3/uL; Basophil% 0.6 % (0-1); Eosinophil# 0.15 X10^3/uL; Eosinophils% 1.4 % (0-5); Hematocrit 36.2 % (37-47); Hemoglobin 12.3 g/dL (12.0-15.0); Lymphocyte # 1.71 X10^3/ul (0.83-4.51); Lymphocyte % 16.4 % (19-41); Mean Corpuscular Hgb 30.3 pg (27.0-32.0); Mean Corpuscular Volume 89.2 fL (81-99); Mean Platelet Vol. 12.2 fl (6.2-12.0); Monocyte# 0.55 X10^3/uL; Monocyte% 5.3 % (0-10); NRBC Flagged by Analyzer 0 % (0-5); Neutrophil # 7.83 X10^3/uL (2.7-7.7); Neutrophil % 75.1 % (47-70); Platelet Count 175 K/mm3 (150-450); RBC Distribution Width CV 12.7 % (11.6-14.6); RBC Distribution Width SD 41.8 fl (35.1-43.9); Red Blood Count 4.06 M/mm3 (4.2-5.4); White Blood Count 10.4 K/mm3 (4.4-11.0)
[2021-05-26 07:44] LABS: Glucose Challenge Gest 1H 50g 139 mg/dL (70-140)
== END 2021-05-26 23:59 | disposition short-term general hospital (02) ==
LOC: LAB 06:18
PROVIDERS: PCP Family Medicine; Referring Provider Obstetrics & Gynecology; Visit Provider Obstetrics & Gynecology
DX: O09.92 Supervision of high risk pregnancy, unspecified, second trimester (principal); Z3A.00 Weeks of gestation of pregnancy not specified; Z13.1 Encounter for screening for diabetes mellitus
CPT/HCPCS: 36415; 82950; 85025

== ENCOUNTER 2021-06-26 12:51 | Outpatient (CLI) | payer OTHER, SELFPAY ==
--- NOTE | 2021-06-26 12:52 | US_ITS ---
STUDY: SECOND AND THIRD TRIMESTER OBSTETRICAL ULTRASOUND - LIMITED REASON FOR EXAM: Female, 36 years old . growth. LMP: 08/23/2021. PRIOR ULTRASOUND: None. TECHNIQUE: Transabdominal TECHNICAL QUALITY: Adequate. FINDINGS: There is a single intrauterine fetus. The fetus is in a transverse lie with the head on the maternal right side. There is demonstrated cardiac activity with a heart rate of 144 bpm. There is a normal amniotic fluid volume. The largest amniotic fluid pocket measures 7 cm x 3.9 cm. The amniotic fluid index (ANNALISE) is 18.77 cm. The placenta is anterior in location and is not low lying. There are Grade 1 placental changes. The cervix measures 3.6 cm in length. BIOMETRY: BPD: 8.53 cm: 34 weeks, 3 days HC: 30.91 cm: 34 weeks, 4 days AC: 31.55 cm: 35 weeks, 4 days FL: 6.88 cm: 35 weeks, 3 days Age by LMP: 31 weeks, 5 days. CAM by LMP: 08/23/2021. age by current US: 35 weeks, 0 days. CAM by current US: 07/31/2021. Estimated weight: 2622 grams, +/- 383 grams, 98 percentile. US/OB Limited With Biometrics IMPRESSION: Single live intrauterine gestation with a mean gestational age of 35 weeks. Electronically Signed: Jose M Collier MD at 14:20 EST ,
== END 2021-06-26 23:59 | disposition home or self-care (01) ==
LOC: US 12:51
PROVIDERS: PCP Family Medicine; Referring Provider Obstetrics & Gynecology; Visit Provider Obstetrics & Gynecology
DX: O98.513 Other viral diseases complicating pregnancy, third trimester (principal); U07.1 COVID-19; Z3A.00 Weeks of gestation of pregnancy not specified
CPT/HCPCS: 76816

== ENCOUNTER 2021-07-10 09:27 | Outpatient (CLI) | payer OTHER, SELFPAY ==
[2021-07-10 10:46] LABS: Hemoglobin A1c 5.2 % (3.8-5.6)
== END 2021-07-10 23:59 | disposition home or self-care (01) ==
LOC: LAB 09:30
PROVIDERS: PCP Family Medicine; Referring Provider Obstetrics & Gynecology; Visit Provider Obstetrics & Gynecology
DX: O36.60X0 Maternal care for excessive fetal growth, unspecified trimester, not applicable or unspecified (principal); Z3A.00 Weeks of gestation of pregnancy not specified
CPT/HCPCS: 36415; 83036

== ENCOUNTER 2021-07-11 08:37 | Outpatient (CLI) | payer OTHER, SELFPAY ==
[2021-07-11 08:47] VITALS: PULSE 108; TEMP 36.3; O2SAT 98
[2021-07-11 08:48] VITALS: PULSE 110; O2SAT 97
[2021-07-11 08:50] VITALS: BP 122/77; PULSE 105
[2021-07-11 09:03] VITALS: BMI 32.3
[2021-07-11 09:15] LABS: Bacteria 0 SEEN /hpf (None Seen); Mucous, Urine 0 SEEN /hpf (<or=2+); Red Blood Cells-Urine 0 SEEN /hpf (0-5); Squamous Epithelial Cells - UA 0 SEEN /hpf (5-10); White Blood Cells 0 SEEN /hpf (0-5)
[2021-07-11 09:27] LABS: Color, Urine Yellow (Yellow); Glucose, Dipstick Normal (Normal); Ketone-Dipstick Negative (Negative); Leukocyte Esterase-Dipstick Negative /ul (Negative); Nitrite-Dipstick Negative (Negative); Occult Blood-Urine Negative /ul (Negative); Protein-Dipstick Negative (Negative); Specific Gravity, Urine 1.005 (1.002-1.030); Urine Bilirubin Dipstick Negative (Negative); Urine Clarity Clear (Clear); Urine Urobilinogen Normal (Normal)
[2021-07-11] MEDS: Betamethasone/Betamethasone 30 MG/5 ML Vial 12 MG IM (10:24)
--- NOTE | 2021-07-11 23:57 | OB.TRI.PN ---
Progress Notes Date of Service: 07/11/21 Progress Note: Patient presents for triage evaluation secondary to contractions FHT: 140 Moderate variability reactive no decelerations category I tracing [place]: irregular Contractions Assessment and plan: contractions no cervical change cel[place] number two given Reactive NST, reassuring maternal and status patient discharged to home to follow-up as scheduled. See problem list details for additional plan information. Laboratory Studies: Laboratory Tests 07/11/21 Range/Units 08:50 Urine Color Yellow (Yellow) Urine Clarity Clear (Clear) Urine pH 6.0 (5.0 - 8.0) Ur Specific [place] 1.005 (1.002-1.030) Urine Protein Negative (Negative) mg/dl Urine Glucose (UA) Normal (Normal) mg/dl Urine Ketones Negative (Negative) mg/dl Urine Occult Blood Negative (Negative) /ul Urine Nitrite Negative (Negative) Urine Bilirubin Negative (Negative) mg/dL Urine Urobilinogen Normal (Normal) mg/dl Ur Leukocyte Esterase Negative (Negative) /ul Urine RBC 0 SEEN (0-5) /hpf Urine WBC 0 SEEN (0-5) /hpf Ur Squamous Epith Cells 0 SEEN (5-10) /hpf Urine Bacteria 0 SEEN (None Seen) /hpf Urine Mucus 0 SEEN (<or=2+) /hpf Charges/Coding Procedures Urinary/Genital 52xxx-59xxx: [id number] non-stress test Interp
== END 2021-07-11 23:59 | disposition home or self-care (01) ==
LOC: WPOUT 08:40 → WP 08:40
PROVIDERS: PCP Family Medicine; Visit Provider Obstetrics & Gynecology
DX: O47.9 False labor, unspecified (principal); Z3A.00 Weeks of gestation of pregnancy not specified
CPT/HCPCS: 59025; 59050; 81001; 87086; 99218; G0378; J0702

== ENCOUNTER 2021-07-24 08:42 | Outpatient (CLI) | payer OTHER, SELFPAY ==
--- NOTE | 2021-07-24 08:45 | US_ITS ---
STUDY: SECOND AND THIRD TRIMESTER OBSTETRICAL ULTRASOUND - LIMITED REASON FOR EXAM: Female, 36 years old growth @ 32 and 36 weeks -- standing order LMP: 11/16/2020. PRIOR ULTRASOUND: Comparison is made with prior study of 06/26/2021. TECHNIQUE: Transabdominal TECHNICAL QUALITY: Adequate. FINDINGS: There is a single intrauterine fetus. The fetus is in a cephalic presentation. There is demonstrated cardiac activity with a heart rate of 140 bpm. There is a normal amniotic fluid volume. The largest amniotic fluid pocket measures 9.4 cm. The amniotic fluid index (ANNALISE) is 16.25 cm. The placenta is anterior in location and is not low lying. There are Grade 1 placental changes. The cervix measures 3.2 cm in length. BIOMETRY: BPD: 8.95 cm: 36 weeks, 1 days HC: 32.49 cm: 36 weeks, 5 days AC: 34.12 cm: 38 weeks, 0 days FL: 7.29 cm: 37 weeks, 2 days Age by LMP: 35 weeks, 5 days. CAM by LMP: 08/23/2021. age by prior US: 39 weeks, 0 days. CAM by prior US: 07/31/2021. age by current US: 36 weeks, 6 days. CAM by current US: 08/15/2021. Estimated weight: 3270 grams, +/- 491 grams, 92 percentile. US/OB Limited With Biometrics IMPRESSION: Single live uterine gestation with a mean gestational age of 36 weeks and 6 days. Electronically Signed: Jose M Collier MD at 15:30 EST ,
== END 2021-07-24 23:59 | disposition home or self-care (01) ==
LOC: OPUS 08:43
PROVIDERS: PCP Family Medicine; Referring Provider Obstetrics & Gynecology; Visit Provider Obstetrics & Gynecology
DX: O98.513 Other viral diseases complicating pregnancy, third trimester (principal); U07.1 COVID-19; Z78.9 Other specified health status; Z3A.00 Weeks of gestation of pregnancy not specified
CPT/HCPCS: 76816

== ENCOUNTER 2021-07-31 09:57 | Outpatient (CLI) | payer OTHER, SELFPAY | END 2021-07-31 23:59 | disposition home or self-care (01) | LOC: LABSPEC 08-01 10:12 | PROVIDERS: PCP Family Medicine; Visit Provider Nurse Practitioner Women's Health | DX: Z34.93 Encounter for supervision of normal pregnancy, unspecified, third trimester (principal) | CPT/HCPCS: 87081 ==

== ENCOUNTER 2021-08-14 08:16 | Outpatient (CLI) | payer OTHER, SELFPAY ==
--- NOTE | 2021-08-14 08:21 | US_ITS ---
STUDY: SECOND AND THIRD TRIMESTER OBSTETRICAL ULTRASOUND - LIMITED REASON FOR EXAM: Female, 36 years old growth LMP: 11/16/2020. PRIOR ULTRASOUND: Comparison is made with prior study dated 07/24/2021. TECHNIQUE: Transabdominal TECHNICAL QUALITY: Adequate. FINDINGS: There is a single intrauterine fetus. The fetus is in a cephalic presentation. There is demonstrated cardiac activity with a heart rate of 150 bpm. There is a normal amniotic fluid volume. The largest amniotic fluid pocket measures 6.3 cm. The amniotic fluid index (ANNALISE) is 18.5 cm. The placenta is anterior in location and is not low lying. There are Grade 2 placental changes. The cervical length was unable to be measured due to head positioning. BIOMETRY: BPD: 9.7 cm: 39 weeks, 4 days HC: 34.4 cm: 39 weeks, 5 days AC: 36.5 cm: 40 weeks, 2 days FL: 7.970: 40 weeks, 2 days Age by LMP: 38 weeks, 5 days. CAM by LMP: 08/23/2021. age by prior US: 39 weeks, 6 days. CAM by prior US: 08/15/2021. age by current US: 39 weeks, 6 days. CAM by current US: 08/15/2021. Estimated weight: 4071 grams, +/- 611 grams, 94 percentile. US/OB Limited With Biometrics IMPRESSION: Single live intrauterine gestation with a mean gestational age of 39 weeks and 6 days. There has been good interval growth. Electronically Signed: Jose M Collier MD at 9:17 EDT ,
== END 2021-08-14 23:59 | disposition home or self-care (01) ==
LOC: OPUS 08:18 → US 08:18
PROVIDERS: PCP Family Medicine; Referring Provider Obstetrics & Gynecology; Visit Provider Obstetrics & Gynecology
DX: O09.92 Supervision of high risk pregnancy, unspecified, second trimester (principal)
CPT/HCPCS: 76816

== ENCOUNTER 2021-08-17 10:00 | Inpatient (IN) | payer OTHER, SELFPAY ==
[2021-08-17] VITALS (19 sets, daily range): BP systolic 84–122; BP diastolic 38–83; PULSE 52–92; RESP 9–18; TEMP 36.3–36.7; O2SAT 94–100; BMI 33.6
[2021-08-17] MEDS: Lactated Ringers 1,000 ML 999 ML IV (10:55)
[2021-08-17 11:06] LABS: Absolute Lymphocyte Count 2.28 X10^3/uL (0.83-4.51); Absolute Neutrophil Count 9.7 X10^3/uL (2.0-7.7); Basophil# 0.07 X10^3/uL; Basophil% 0.5 % (0-1); Eosinophil# 0.05 X10^3/uL; Eosinophils% 0.4 % (0-5); Hematocrit 35.8 % (37-47); Lymphocyte # 2.28 X10^3/ul (0.83-4.51); Lymphocyte % 17.6 % (19-41); Mean Corp Hgb Conc 33.5 g/dL (32-36); Mean Corpuscular Hgb 29.3 pg (27.0-32.0); Mean Corpuscular Volume 87.5 fL (81-99); Mean Platelet Vol. 12.4 fl (6.2-12.0); Monocyte# 0.69 X10^3/uL; Monocyte% 5.3 % (0-10); NRBC Flagged by Analyzer 0 % (0-5); Neutrophil # 9.74 X10^3/uL (2.7-7.7); Neutrophil % 75.2 % (47-70); Platelet Count 201 K/mm3 (150-450); RBC Distribution Width CV 12.9 % (11.6-14.6); RBC Distribution Width SD 40.9 fl (35.1-43.9); Red Blood Count 4.09 M/mm3 (4.2-5.4)
[2021-08-17] MEDS: Acetaminophen 500 MG Tablet 1000 MG PO ×2 (11:36→18:07)
[2021-08-17] MEDS: Lactated Ringers 1,000 ML 150 ML IV (11:44)
[2021-08-17] MEDS: Sodium Citrate/Citric Acid 30 ML UDC PO (11:49)
[2021-08-17] MEDS: Cefazolin 2 GM in 0.9% Normal Saline 100 ML IV (12:04)
[2021-08-17] MEDS: Oxytocin 30 units/NS 500 ml 30 UNITS/500 ML IV.SOLN 167 UNITS IV (13:30)
[2021-08-17] MEDS: Ketorolac 30 MG/ML Syringe IV ×2 (13:44→19:15)
[2021-08-17] MEDS: Lactated Ringers 1,000 ML 100 ML IV (18:07)
[2021-08-17] MEDS: 0.9% Saline Lock 10 ML Syringe IV (20:53)
[2021-08-18 00:45] VITALS: BP 116/69; PULSE 73; RESP 16; TEMP 36.6; O2SAT 95
[2021-08-18] MEDS: Acetaminophen 500 MG Tablet 1000 MG PO ×3 (01:03→13:35)
[2021-08-18] MEDS: Ketorolac 30 MG/ML Syringe IV ×2 (01:54→06:53)
[2021-08-18] MEDS: 0.9% Saline Lock 10 ML Syringe IV (01:54)
[2021-08-18 04:55] VITALS: BP 100/66; PULSE 73; RESP 16; TEMP 36.6; O2SAT 96
[2021-08-18 06:24] LABS: Hematocrit 36.1 % (37-47); Hemoglobin 12.3 g/dL (12.0-15.0); Mean Corp Hgb Conc 34.1 g/dL (32-36); Mean Corpuscular Hgb 29.9 pg (27.0-32.0); Mean Corpuscular Volume 87.6 fL (81-99); Mean Platelet Vol. 12.4 fl (6.2-12.0); Platelet Count 202 K/mm3 (150-450); RBC Distribution Width CV 13.1 % (11.6-14.6); Red Blood Count 4.12 M/mm3 (4.2-5.4); White Blood Count 18.6 K/mm3 (4.4-11.0)
--- NOTE | 2021-08-18 08:19 | PCM.HP.BLA ---
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 Executive Required: No Is patient in pain?: No Allergies No Known Allergies Allergy (Verified 07/24/21 08:23) Medications vitamin#30 30 mg iron-10 mg iron-folic acid 1 mg-omg3 capsule 1 cap PO DAILY cap 05/06/18 [History Confirmed 08/14/21] ascorbic acid (vitamin C) 500 mg capsule 500 mg PO 02/16/21 [History Confirmed 08/14/21] cholecalciferol (vitamin D3) 125 mcg (5,000 unit) capsule 125 mcg PO DAILY 02/16/21 [History Confirmed 08/14/21] zinc 50 mg tablet 50 mg PO DAILY 02/16/21 [History Confirmed 08/14/21] aspirin 81 mg tablet,delayed release 81 mg PO DAILY 05/31/21 [History Confirmed 08/14/21] Last Menstral Period: 10/24/20 Zika: Zika virus screening: Negative : No PFSH PFSH Medical History Abnormal Pap smear of cervix Asthma DESMOND III (cervical intraepithelial neoplasia III) Easy bruising Gastric reflux Hypertension Injury of head and neck Non-smoker Open wound Seasonal allergies Wears contact lenses Wears glasses Surgical History H/O hand surgery H/O LEEP History of colposcopy Hx of cholecystectomy Family History Grandmother Heart disease Cancer pancreatic cancer Social History Smoking Status: Never smoker alcohol intake: never substance use type: does not use caffeine: Yes frequency: 3-4 times per week seatbelt use: always do you feel safe at home: Yes additional social history: - Hema works at [employer] 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 Date Name GA/Weeks Outcome Route Bth Weight Infant Gen Labor Lgth Anesthesia Del Locatn Provider FOB 11/19/18 Izabela 37 live - vacuum [id number] Male epidural [facility] Anca Delivery Date: 11/19/18 [id number] episiotomy third degree laceration, difficulty healing after with pelvic pain and dyspareunia. Praful Marchon HPI 39 WK OB Details: PIEDAD TURNER is a 36 year old who presents for routine OB visit. OB Visit CAM Calculator Estimated Delivery Date Method Current WG Current Estimate 08/23/21 LMP (Certain) 38w 5d Other Estimates 08/24/21 Ultrasound #1 38w 4d Expected Delivery Route/Plan counseled regarding risks vs benefits of IOL at 39 vs proceedwith with elective primary . patient wishes to proceed with primary . Labor Preferences- labor support person: Hema labor intervention preferences: none pain management options preferred: epidural cut cord/dad catch: yes : yes PP control planned: discussed sterilization if would need cs. otherwise vasectomy discussed possible routes of delivery and associated risks: special requests: [] Specific Issue/Plans Covid status: non immune, counseled regarding risk of covid in vs vaccination and declined vaccination Flu vaccine: decline Tdap vaccine: yes Rhogam: na LARC form signed: declined movement and labor precautions reviewed. Problem list reviewed and updated with the most current plan of care details and appropriate orders placed. Relevant counseling for the gestational age provided. Continue routine care and follow up unless otherwise noted in visit notes/problem list details Initial Weight: 165 lb Date EGA Weight BP Urine Prot Glucose FHR FuHt Pres Dilation Effaced St Visit Note 02/16/21 13w 1d 165 lb (+0 oz) Negative Negative 160 SM- no vb cramping 03/14/21 16w 6d 170 lb 4 oz (+5 lb 4 oz) 136/78 Negative Negative 156 MH-No Vb, LOF. Has MFM US 03/16 to check CL. Declines AFP. 04/17/21 21w 5d 174 lb (+9 lb) 100/60 150 22 SM- no v blof good fm n oruglar ctx SM- no vb lof good fm no regular ctx 05/15/21 25w 5d 126/72 Negative Negative 145 26 SM- no vb lof good fm no regular ctx. discussed preferences. 05/31/21 28w 0d 183 lb (+18 lb) 138/86 Negative Negative 145 28 SM- no vb lof good fm no regular ctx 06/26/21 31w 5d 187 lb (+22 lb) 132/80 Negative Negative 140 32 0 SM- small vb last week irregular ctx, increased discharge. good fm 07/10/21 33w 5d 190 lb (+25 lb) 112/72 Negative Negative 140 34 Cephalic 1 20 -3 Sm- no vb lof good fm no regular ctx Sm- some spotting last week, increased discharge,no lof good fm irregular ctx. on exam some dilationg no regular ctx today. will give bmz course due to change. reviewed labor precautions 07/24/21 35w 5d 191 lb (+26 lb) 130/82 Negative Negative 140 37 Cephalic SM- no vb lof good fm no reuglar ctx 07/31/21 36w 5d 197 lb (+32 lb) 118/76 Negative Negative 143 38 Cephalic 1 0 -3 MH-No VB, LOF. Good FM. Reviewed recent US. Stable growth. 08/07/21 37w 5d 196 lb (+31 lb) 118/80 Negative Negative 140 39 Cephalic 2 SM- no vb lof good fm no regular ctx 08/14/21 38w 5d 196 lb (+31 lb) 140 39 Cephalic 3 70 -1 SM- no vb lof good fm no regular ctx SM- no vb lof good fm no regular ctx, discussed IOL 39 vs LTCS due to history of laceration and poor healing ACOG First Trimester First Trimester: Desire for , Alcohol, Tobacco Cessation, Illicit/Recreational Drug/Substance Use, Intimate Partner Violence, Barriers to care, Unstable Housing, Communication Barriers, Environmental/Work Hazards, Anticipated Course of Care, Toxoplasmosis Precations, Use of Any medications, Sexual activity, Exercise, Dental Care, Sauna/Hot tub use, Seat Belt use, Childbirth classes/Hospital facilities, , Travel, Indications for Ultrasound and Screening for Aneuploidy Second Trimester Second Trimester: Signs and Symptoms of Labor, Selecting a care provider, Reproductive Life Planning & Contreception, Care Planning, Tobacco Cessation, Depression/Anxiety and Intimate Partner Violence Third Trimester Third Trimester: Pain Management Plans, Labor support person(s), Immediate Larc, Movement Monitoring and Feeding Yes ; Discussed Trial of Labor after Counseling and Discussed Circumcision preference Diagnostics Diagnostics Diagnostics: Glucose 1 Hr 50 gm 139 mg/dL (70-140) Hgb 12.3 g/dL (12.0-15.0) Hct 36.2 % (37-47) L Details: HIV: Urine Culture: Sequential Screen: NIPT Screen: ROS Const Reports system reviewed and no additional complaints, except as documented Card Reports system reviewed and no additional complaints, except as documented Resp Reports system reviewed and no additional complaints, except as documented GI Reports system reviewed and no additional complaints, except as documented and Reports nausea Reports system reviewed and no additional complaints, except as documented Musc Reports system reviewed and no additional complaints, except as documented Exam Const General: cooperative, healthy appearing, comfortable and anxious HENMT Head: normal to inspection Nose: external nose normal Face and sinus: normal facial exam Neck Neck: normal visual inspection, full ROM and no lymphadenopathy Thyroid: thyroid normal Chest Chest palpation & inspection: normal inspection of the chest Resp Effort & Inspection: normal respiratory effort GI Inspection: normal to inspection Palpation: soft and other (gravid uterus) Other: infant vertex and appropriate size for gestational age Other: Cervical Exam: Extrem General: pedal edema Coding Level of Care Code OB Routine Diagnoses Large for gestational age fetus affecting management of mother O36.60X0 COVID-19 affecting in third trimester O98.513; U07.1 History of LEEP (loop electrosurgical excision procedure) of cervix complicating O34.42; Z98.890 Trimester: second trimester Supervision of high-risk O09.92 Trimester: second trimester Z3A.38 Weeks of gestation: 38 weeks DESMOND III (cervical intraepithelial neoplasia grade III) with severe dysplasia D06.9 Third degree perineal laceration O70.20 Assessment and Plan Assessment and Plan (1) Large for gestational age fetus affecting management of mother: Status: Acute Comment: Repeat growth in 1 month 07/24 US 93% 4000g (2) COVID-19 affecting in third trimester: Status: Acute Comment: 81mg asa 32 & 36 wk US (3) History of LEEP (loop electrosurgical excision procedure) of cervix complicating : Status: Acute Qualifiers: Trimester: second trimester Qualified Code(s): O34.42 - Maternal care for other abnormalities of cervix, second trimester; Z98.890 - Other specified postprocedural states Comment: LEEP procedure November 2020, Per MFM: 16 weeks: TVCL for baseline- if it is <3cm, f/u in 1 week. 19 weeks: anatomic evaluation and TVCL. 21 weeks: TVCL 23 weeks: growth us and TVCL. If CL is <2.5 cm, please f/u w/ MFM for eval and possible cerclage placement- NL CL 03/16/21; NL US 04/17/21 (4) Supervision of high-risk : Status: Acute Qualifiers: Trimester: second trimester Qualified Code(s): O09.92 - Supervision of high risk , unspecified, second trimester Comment: PRR CAM 08/23/2021 boy [facility] izabela hema (5) : Status: Acute Qualifiers: Weeks of gestation: 38 weeks Qualified Code(s): Z3A.38 - 38 weeks gestation of Comment: Anatomy nl. Declines carrier, genetic, ntd screening. GBS neg (6) DESMOND III (cervical intraepithelial neoplasia grade III) with severe dysplasia: Status: Acute Comment: s/p leep 12/07 neg margins (7) Third degree perineal laceration: Status: Acute Comment: difficulty with healing, EFW 1 pound larger, requesting primary section. proceed with LTCS. scheduled 08/17 @ 12 Plan Details Goals & Barriers: Goals Decrease pain and inflammation Decrease numbness Barriers UPDATE- I have seen the patient and performed any clinically relevant updates to the history and physical exam. Vaishali March MD
--- NOTE | 2021-08-18 08:20 | OP.PCM_ITS ---
Assessment & Plan (1) Third degree perineal laceration: COMMENT: difficulty with healing, EFW 1 pound larger, requesting primary section. proceed with LTCS. scheduled 08/17 @ 12 (2) Large for gestational age fetus affecting management of mother: COMMENT: Repeat growth in 1 month 07/24 US 93% 4000g (3) COVID-19 affecting in third trimester: COMMENT: 81mg asa 32 & 36 wk US (4) History of LEEP (loop electrosurgical excision procedure) of cervix complicating : QUALIFIERS: Trimester: second trimester Qualified Code(s): O34.42 - Maternal care for other abnormalities of cervix, second trimester; Z98.890 - Other specified postprocedural states COMMENT: LEEP procedure November 2020, Per MFM: 16 weeks: TVCL for baseline- if it is <3cm, f/u in 1 week. 19 weeks: anatomic evaluation and TVCL. 21 weeks: TVCL 23 weeks: growth us and TVCL. If CL is <2.5 cm, please f/u w/ MFM for eval and possible cerclage placement- NL CL 03/16/21; NL US 04/17/21 (5) Supervision of high-risk : QUALIFIERS: Trimester: second trimester Qualified Code(s): O09.92 - Supervision of high risk , unspecified, second trimester COMMENT: PRR CAM 08/23/2021 jack Meehan paul hema (6) : QUALIFIERS: Weeks of gestation: 38 weeks Qualified Code(s): Z3A.38 - 38 weeks gestation of COMMENT: Anatomy nl. Declines carrier, genetic, ntd screening. GBS neg (7) DESMOND III (cervical intraepithelial neoplasia grade III) with severe dysplasia: COMMENT: s/p leep 12/07 neg margins (8) delivery delivered: COMMENT: LTCS history third degree laceration 39 jack meehan Maternal Data Information CAM Calculator Estimated Delivery Date Method Current WG Current Estimate 08/23/21 LMP (Certain) 39w 2d Other Estimates 08/24/21 Ultrasound #1 39w 1d Final CAM Source: LMP Details Operative Information Date of Procedure: 08/18/21 Pre-Operative Diagnosis: Previous Post-Operative Diagnosis: same Indications for : Repeat Elective Classification: Scheduled Procedure Type: low transverse communications assistant #1: Stiven Mcconnell Type of Anesthesia: Spinal Special Medications: none Antibiotic Given: Ancef 2 grams IV x1 Drain: Sims to straight drain Estimated Blood Loss: 600 Fluids Replaced: crystalloid Findings Description of Procedure: Spinal anesthesia was placed without difficulty. Sims catheter was placed. The patient was placed in the dorsal supine position with leftward tilt. Patient was prepped and draped in the normal sterile fashion. Pfannenstiel skin incision was made with the scalpel and carried through to the underlying layer of fascia with the scalpel. Fascia was nicked in the midline and the incision extended laterally. The rectus bellies were dissected off superiorly and inferiorly with out complication both sharply and bluntly. The peritoneum was entered digitally. The incision was stretched and a low transverse uterine incision was made with the scalpel. The infant's head was delivered atraumatically followed by the anterior and posterior shoulders without complication the rest of the delivered. The cord was clamped and cut and the was handed off to awaiting nurse. The placenta was delivered spontaneously immediately following and was noted to be intact and have a three- vessel cord. The uterus was exteriorized cleared of all clots and debris, and the incision was closed in a double layer closure using #1 Monocryl. The ovaries and fallopian tubes were noted to be within normal limits. The uterus was returned to the maternal abdomen and gutters were cleared of all clots and debris. The peritoneum was closed with 3-0 Monocryl in a running fashion. Gloves were changed prior to fascial closure. Fascia was closed with 0 PDS in a running fashion. Subcutaneous tissue was copiously irrigated and the skin was closed with 3-0 Monocryl in a subcuticular fashion. Mepilex dressing was applied without complication. Patient was taken to recovery in stable condition. It was discussed with the patient that based on the clinical information obtained during this encounter, combined with her history, at this time I would recommend cesareans for future deliveries if further pregnancies are desired. Amniotic Membrane Rupture Type: Artificial Amniotic Fluid Description: Clear Placenta Disposition: [facility] Cord Vessel Description: 3 Vessels Cord Entanglement: None Delayed Cord Clamping: Yes Complications Risks of Surgery Discussed w/Patient: Bleeding, Infection, Need for Future C- Sections and Injury to surrounding structure(s) including bowel and bladder Vaginal Delivery Complication Complications: None Admit VTE Documentation VTE Present on Admission: No VTE Mechan Device Prophylaxis: SCD's Procedures Urinary/Genital [id number]: [id number] Delivery global g
--- NOTE | 2021-08-18 08:23 | PCM.DC ---
Discharge Instructions Diet Discharge Diet: No restrictions Activity Discharge Activity: May Not Drive (for 2 weeks or while taking narcotic pain medications.), May Shower and May Take a Tub Bath (in 7 days) May shower in (days): 0 May resume sexual activity in: 4-6 weeks Weight Bearing Status: Full weight bearing Lifting Restrictions: 20 pounds Dressing / Incision Call your doctor if your incision/area has: Continuous Slow Oozing, Sudden Increased Bleeding, Increased Pain/ Swelling, Increased Redness and Foul Smelling Discharge Call your doctor if you observe: Fever of 101 or Higher and Using more than 1 pad per hour (for 2 hours) Suture Line Care: Avoid Pulling/Pushing and Avoid Pinching/Bending Cleanse incision/area with: Soap & Water and Keep Dressing Clean & Dry Follow Up Care Please Follow Up With: Vaishali March MD When: Call [phone] to make an appointment for an incision check in 1-2 weeks. Test Results: Test results from this visit will be discussed in further detail at your follow-up appointment, if applicable. Discharge Plan Admission Admit Date/Time: 08/17/21 10:00 Attending Provider: Vaishali March Primary Care Provider: Kemal Jeter Discharge Orders/Prescriptions Prescriptions: New oxycodone-acetaminophen [Percocet] 5-325 mg tablet 1 tab PO Q6H PRN (Reason: pain) 7 Days Qty: 20 RF: 0 naproxen [naproxen] 500 MG tablet 500 mg PO BID PRN PRN (Reason: Pain) Qty: 30 RF: 1 Continued vitamin#30 30 mg iron-10 mg iron-folic acid 1 mg-omg3 capsule 30 mg iron-10 mg iron-1 mg capsule 1 cap PO DAILY RF: 0 cholecalciferol (vitamin D3) 125 mcg (5,000 unit) capsule 125 mcg PO DAILY RF: 0 ascorbic acid (vitamin C) 500 mg capsule 500 mg PO DAILY RF: 0 zinc 50 mg tablet 50 mg PO DAILY RF: 0 aspirin 81 mg tablet,delayed release (DR/EC) 81 mg PO DAILY RF: 0 Referrals / Follow Up: Kemal Jeter MD [Primary Care Provider] - Disposition Disposition (needs filled in before D/C Order can be placed): Home, Self Care
--- NOTE | 2021-08-18 08:36 | PCM.PN.OB ---
Subjective Subjective Patient doing well without complaints. Tolerating PO. Ambulating and voiding without difficulty. infant feeding well. Denies chest pain, shortness of breath, calf pain/swelling, fevers, chills, lightheadedness. Objective Data Objective Data Vital Signs: Vital Signs Temp Pulse Resp BP Pulse Ox 97.8 F 73 16 100/66 96 08/18/21 04:55 08/18/21 04:55 08/18/21 04:55 08/18/21 04:55 08/18/21 04:55 Oxygen Delivery Method Room Air Weight: 195 lb 15.855 oz Body Mass Index (BMI) 33.6 Intake & Output: Intake and Output for Last 24 Hours 08/16/21 08/17/21 08/18/21 23:59 23:59 23:59 Intake Total 2689.18 / 2689.18 Output Total 1999 / 1999 1500 / 1500 Balance 689.18 / 689.18 -1500 / -1500 Lab / Micro Data Result Diagrams: 08/18/21 06:15 Labs: Laboratory Results - last 24 hr 08/17/21 10:55: WBC 13.0 H, RBC 4.09 L, Hgb 12.0, Hct 35.8 L, MCV 87.5, MCH 29.3, MCHC 33.5, RDW Std Deviation 40.9, RDW Coeff of Dano 12.9, Plt Count 201, MPV 12.4 H, Immature Gran % (Auto) 1.000 H, Neut % (Auto) 75.2 H, Lymph % (Auto) 17.6 L, [place] % (Auto) 5.3, Eos % (Auto) 0.4, Baso % (Auto) 0.5, Absolute Neuts (auto) 9.7 H, Absolute Lymphs (auto) 2.28, Nucleated RBC % 0 08/17/21 10:55: Blood Type A POSITIVE, Antibody Screen NEGATIVE 08/18/21 06:15: WBC 18.6 H, RBC 4.12 L, Hgb 12.3, Hct 36.1 L, MCV 87.6, MCH 29.9, MCHC 34.1, RDW Std Deviation 42.0, RDW Coeff of Dano 13.1, Plt Count 202, MPV 12.4 H Micro: Microbiology 08/17/21 11:25 Nasal Secretion SARS-CoV-2 Antigen (Rapid) - Final ROS Constitutional Constitutional: Reports systems reviewed and no addt'l complaints, except as documented Cardiovascular Cardiovascular: Reports systems reviewed and no addt'l complaints, except as documented Respiratory/Chest Respiratory/Chest: Reports systems reviewed and no addt'l complaints, except as documented Gastrointestinal Gastrointestinal: Reports systems reviewed and no addt'l complaints, except as documented Physical Exam Const alert, oriented x3 and no apparent distress HEENT Head and Scalp: atraumatic Resp normal respiratory effort GI soft to palpation and non-tender Inspection: incision intact, healing well and drainage (none) Bimanual Exam - Vag & Uterus: uterus non-tender Uterus Palpation: uterus fundus firm (below Umbilicus) Assessment & Plan (1) delivery delivered: COMMENT: LTCS history third degree laceration 39 boy zoran PLAN: s/p LTCS PPD # 1 1. routine post care 2. breast feeding- support given 3. rh positive 4. rubella immune
[2021-08-18 10:13] VITALS: BP 131/62; PULSE 70; RESP 18; TEMP 36.5; O2SAT 97
[2021-08-18] MEDS: Senna/Docusate Sodium 1 Tablet PO (10:20)
[2021-08-18] MEDS: Naproxen 500 MG Tablet PO (13:36)
== END 2021-08-18 13:50 | disposition home or self-care (01) | DRG 788 ==
PROVIDERS: Admitting Provider Obstetrics & Gynecology; PCP Family Medicine; Referring Provider Obstetrics & Gynecology; Visit Provider Obstetrics & Gynecology
PROC: (CPT 59514; principal; 2021-08-17 11:45)
DX: O36.63X0 Maternal care for excessive fetal growth, third trimester, not applicable or unspecified (principal); D06.9 Carcinoma in situ of cervix, unspecified; Z80.0 Family history of malignant neoplasm of digestive organs; Z37.0 Single live birth; Z3A.38 38 weeks gestation of pregnancy; Z79.82 Long term (current) use of aspirin; Z86.16 Personal history of COVID-19; Z98.890 Other specified postprocedural states; O34.43 Maternal care for other abnormalities of cervix, third trimester; O99.893 Other specified diseases and conditions complicating puerperium
CPT/HCPCS: 59025; 59050; 85025; 85027; 86850; 86900; 86901; 87426; 99218; 99251; J7120; A4216; G0378; G0463; J2405

== ENCOUNTER → 2021-10-02 | Outpatient (CLI) | payer OTHER, SELFPAY ==
[2021-10-07 12:59] LABS: HPV APTIMA, High Risk Negative (Negative)
== END | disposition home or self-care (01) ==
PROVIDERS: PCP Family Medicine; Referring Provider Obstetrics & Gynecology; Visit Provider Obstetrics & Gynecology
DX: Z12.4 Encounter for screening for malignant neoplasm of cervix (principal)
CPT/HCPCS: 87624; 88175; G0145

== ENCOUNTER → 2021-12-22 | Outpatient (CLI) | payer OTHER, SELFPAY ==
--- NOTE | 2021-12-22 12:26 | US_ITS ---
INDICATION: AUB EXAMINATION: Ultrasound US Pelvis Non OB Complete With Transvaginal Imaging TECHNIQUE: Transabdominal and transvaginal pelvic ultrasound was performed. Grayscale, spectral waveform, and color flow Doppler evaluation of the adnexa. COMPARISON: 12/22/2021. FINDINGS: UTERUS: Uterus is retroverted, demonstrates unremarkable echogenicity no evidence of hyperechoic masses within the uterus. Unremarkable vascularity, unremarkable size, shape and configuration. The uterus measures 6.6 x 6.0 x 4.0 cm. The endometrial stripe measures 0.3 cm in AP diameter which is within normal limits. Linear hyperechoic intrauterine contraceptive device is visualized within the lower uterine segment would recommend rectification. RIGHT OVARY: The right ovary measures 3.2 x 2.2 x 2.3 cm. Non-enlarged, normal echogenicity. There is normal arterial inflow and venous outflow present in the right ovary. LEFT OVARY: The left ovary measures 3.3 x 2.7 x 2.4 cm. Multiple follicles visualized with a dominant follicle seen measuring 1.6 x 2.2 cm. Non-enlarged, normal echogenicity. There is normal arterial inflow and venous outflow present in the left ovary. FREE FLUID: None. US/Pelvic (Non ) IMPRESSION: Intrauterine contraceptive device is visualized within the lower uterine segment would recommend rectification Electronically Signed: Cm Huber MD at 13:12 EDT ,
--- NOTE | 2021-12-22 12:26 | US_ITS ---
INDICATION: AUB EXAMINATION: Ultrasound US Pelvis Non OB Complete With Transvaginal Imaging TECHNIQUE: Transabdominal and transvaginal pelvic ultrasound was performed. Grayscale, spectral waveform, and color flow Doppler evaluation of the adnexa. COMPARISON: 12/22/2021. FINDINGS: UTERUS: Uterus is retroverted, demonstrates unremarkable echogenicity no evidence of hyperechoic masses within the uterus. Unremarkable vascularity, unremarkable size, shape and configuration. The uterus measures 6.6 x 6.0 x 4.0 cm. The endometrial stripe measures 0.3 cm in AP diameter which is within normal limits. Linear hyperechoic intrauterine contraceptive device is visualized within the lower uterine segment would recommend rectification. RIGHT OVARY: The right ovary measures 3.2 x 2.2 x 2.3 cm. Non-enlarged, normal echogenicity. There is normal arterial inflow and venous outflow present in the right ovary. LEFT OVARY: The left ovary measures 3.3 x 2.7 x 2.4 cm. Multiple follicles visualized with a dominant follicle seen measuring 1.6 x 2.2 cm. Non-enlarged, normal echogenicity. There is normal arterial inflow and venous outflow present in the left ovary. FREE FLUID: None. US/Transvaginal Non- IMPRESSION: Intrauterine contraceptive device is visualized within the lower uterine segment would recommend rectification Electronically Signed: Cm Huber MD at 13:12 EDT ,
== END | disposition home or self-care (01) ==
PROVIDERS: PCP Family Medicine; Referring Provider Obstetrics & Gynecology; Visit Provider Obstetrics & Gynecology
DX: N93.9 Abnormal uterine and vaginal bleeding, unspecified (principal)
CPT/HCPCS: 76830; 76856